=== PATIENT | male | born 1955 | race Caucasian/White ===

== ENCOUNTER 2017-03-31 14:22 | Emergency (ER) | payer MEDICARE, OTHER ==
--- NOTE | 2017-03-31 15:01 | ERNOTE ---
Lower Extremity HPI - Narrative Date of Service: 03/31/17 - General Lower Extremities Pain: foot: right Time Seen by Provider: 03/31/17 14:39 Source: patient Exam Limitations: no limitations - Immun/Allergies/Home Medications Immunizations: IMMUNIZATION HX Immunizations Up to Date Yes History of Influenza Vaccine No Hx Pneumococcal Vaccination No Allergies/Adverse Reactions: Allergies Allergy/AdvReac Type Severity Reaction Status Date / Time No Known Allergies Allergy Unverified 03/05/14 17:55 Home Medications: HOME MEDICATIONS Albuterol Sulfate [Albuterol Sulfate 2.5 MG/0.5ML] 1 vial IH Q2H PRN 03/05/14 [ Last Taken Unknown] Albuterol Sulfate [Proair Hfa] 1 - 2 puff IH Q4H PRN 03/05/14 [Last Taken Unknown] Aspirin 325 mg PO DAILY 03/05/14 [Last Taken Unknown] Atenolol [Tenormin] 25 mg PO DAILY 03/05/14 [Last Taken Unknown] Clopidogrel Bisulfate [Plavix] 75 mg PO DAILY 03/05/14 [Last Taken Unknown] Fenofibrate Nanocrystallized [Tricor] 145 mg PO DAILY 03/05/14 [Last Taken Unknown] Fexofenadine HCl 180 mg PO DAILY 03/05/14 [Last Taken Unknown] Fluticasone/Salmeterol [Advair 250-50 Diskus] 1 puff IH BID 03/05/14 [Last Taken Unknown] Gabapentin [Neurontin] 600 mg PO TID 03/05/14 [Last Taken Unknown] Hydrochlorothiazide [Hydrodiuril] 25 mg PO DAILY 03/05/14 [Last Taken Unknown] Insulin Aspart [Novolog] 1,000 units SC 03/05/14 [Last Taken Unknown] Insulin Detemir [Levemir] 50 unit SQ DAILY 03/05/14 [Last Taken Unknown] Lisinopril [Zestril] 20 mg PO DAILY 03/05/14 [Last Taken Unknown] Omeprazole [Prilosec] 20 mg PO DAILY 03/05/14 [Last Taken Unknown] Polyethylene Glycol 3350 [Miralax] 17 gm PO DAILY 03/05/14 [Last Taken Unknown] Potassium Chloride [Klor-Con M20] 20 meq PO DAILY 03/05/14 [Last Taken Unknown] Simvastatin [Zocor] 40 mg PO HS 03/05/14 [Last Taken Unknown] Tiotropium [place] [Spiriva] 18 mcg IH DAILY 03/05/14 [Last Taken Unknown] metFORMIN HCL [Glucophage] 500 mg PO BIDWM 03/05/14 [Last Taken Unknown] Albuterol Sulfate [Proair Hfa] 1 - 2 puff IH Q4H PRN 03/31/17 [Last Taken Unknown] Clotrimazole [Lotrimin Cream] 1 appl TP BID #30 gm 03/31/17 [Last Taken Unknown] Cyanocobalamin (Vitamin B-12) [Vitamin B12] 1,000 mcg PO 03/31/17 [Last Taken Unknown] Petrolatum,White [Aquaphor] 1 appl TP BID #50 gm 03/31/17 [Last Taken Unknown] Tamsulosin HCl [Flomax] 0.4 mg PO DAILY 03/31/17 [Last Taken Unknown] - History of Present Illness Narrative: Pt. comes in with c/o R leg redness and discoloration and scaling for two months. Pt. states that he went to his PCP two months ago and was started on abx without any relief. Pt. states that he also has discoloration of B palms of his hands and his other foot as well. Pt. denies any CP, NVD, fever, SOB, chills, fatigue or malaise. Occurred: other - 2 months Location of Incident: home Method of Injury: Reports: no apparent injury Modifying Factors - (Improves): Reports: other - denies Modifying Factors - (Worsens): Reports: other - denies Associated Symptoms: Denies: unable to bear weight, snapping, popping sensation , dizzy/light headedness, headache, weakness, sensory loss, chest pain, vomiting /diarrhea, bowel/bladder problems Review of Systems - Review of Systems Constitutional: Present: no symptoms reported. Absent: recent illness, fever, chills, weakness, fatigue, malaise EYE: Present: no symptoms reported ENT: Present: no symptoms reported Respiratory: Present: no symptoms reported. Absent: shortness of breath, cough , wheezing Cardiology: Present: no symptoms reported. Absent: chest pain, palpitations, edema Gastrointestinal/Abdominal: Present: no symptoms reported. Absent: nausea, vomiting, diarrhea Genitourinary: Present: no symptoms reported. Absent: frequency, decreased urinary output Musculoskeletal: Present: joint pain - R foot. Absent: back pain, neck pain Skin: Present: no symptoms reported Neurological: Absent: headache, dizziness/light-headedness, numbness, tingling - Patient's Past Medical History Patient History - Medical: Arthritis, Diabetes Type 2 Patient History - Cardiac/Respiratory: Asthma, Hypertension, Hyperlipidemia Patient History - Cancer: No Hx of Cancer Patient History - Surgical Procedures: Other, Hernia Repair Patient History - Other: None - Social History Living Situations: alone Abuse History: No History of abuse Psych History: No pertinent hx Smoking Status: Never smoker Have you smoked in the past 12 months: Yes Do you dip or chew tobacco: No Alcohol Use: occasionally Drug Use: none - Immunizations Immunizations Up to Date: Yes Hx Pneumococcal Vaccination: No History of Influenza Vaccine: No Physical Exam - Physical Exam General Appearance: Present: wd/wn, alert, no apparent distress Head Exam: Present: normal inspection, no evidence of injury Eye Exam: Normal inspection: bilateral Neck: Present: normal inspection, nontender, supple, full range of motion. Absent: lymphadenopathy (R), lymphadenopathy (L) Respiratory: Present: no respiratory distress, normal breath sounds, no accessory muscle use, chest nontender, lungs clear Cardiovascular/Chest: Present: regular rate, rhythm, no murmur, normal peripheral pulses Back Exam: Present: normal inspection Extremity Exam: Present: normal range of motion, pedal edema - trace B Neurological Exam: Present: alert, oriented, normal mood/affect, no motor/ sensory deficits Skin Exam: Present: other - B feet and palmar surface of hands with discolorations and callussed surface with excoriations of dorsal B feet and redness of B feet ED Progress - Date and Time Seen: Date and Time: 03/31/17 16:[address] Bedolla and as pt. does not meet SIRS criteria then Lactic acid elevation is likely inflammatory but feel that pt. needs treatment with topical antifungal anmd oral abx anyway when discharged. - Results and Orders Patient's Lab Results:: I have reviewed the patient's lab results. - Vital Signs Patient's Vital Signs:: I have reviewed the patient's vital signs. Vital Signs: Vital Signs 03/31/17 14:31 Temperature 36.2 C L Pulse Rate 100 Respiratory 14 Rate Blood Pressure 179/98 - Progress/Reassessment Chief Complaint: Lower Extremity Pain/ Injury Progress:: Improved Departure Clinical Impression: Tinea Cellulitis Qualifiers: Site of cellulitis: extremity Site of cellulitis of extremity: lower extremity Laterality: right Qualified Code(s): L03.115 - Cellulitis of right lower limb - Departure Disposition: Home self-care Condition: Good Instructions: Cellulitis, Adult, [id number], Athlete's Foot, [id number] Additional Instructions: Please soak feet and clean with soap and water then apply lotramin cream twice a day and change into clean socks. Then apply aquacel to hands and feet and legs two hours later. Referrals: Yarelis Marley MD [Primary Care Provider] - Prescriptions: Clotrimazole [Lotrimin Cream] 1 appl TP BID #30 gm Petrolatum,White [Aquaphor] 1 appl TP BID #50 gm
[2017-03-31 15:11] LABS: Hematocrit 50.8 % (42.0-52.0); Hemoglobin 17.5 gm/dL (13.5-18.0); Mean Cell Volume 90.2 fl (78-100); Mean Corpuscular Hemoglobin 31.1 pg (27-31); Mean Corpuscular Hgb Conc 34.4 g/dl (32-36); Mean Platelet Volume 8.9 fl (6.0-9.5); Neutrophil # 6.8 K/mm3 (1.3-6.0); Neutrophil % 74.6 % (42-75.0); Platelet Count 183 K/mm3 (150-450); Red Blood Count 5.63 M/mm3 (4.7-6.0); Red Cell Distribution Width 15.2 % (11.5-14.0)
[2017-03-31 15:25] LABS: Anion Gap 16.3 mmol/L (6.8-13.8); BUN/Creatinine Ratio 24.3 (9.0-21.6); Bilirubin, Total 1.3 mg/dL (0.0-1.1); CRP 2.2 mg/dL (0.0-0.9); Ca. Corrected For Albumin 9.4 mg/dL (8.4-10.2); Calcium * 9.7 mg/dL (7.9-10.9); Carbon Dioxide 26.8 mmol/L (24-32.6); Potassium 4.1 mmol/L (3.4-4.6); Total Protein 8.6 gm/dL (6.2-8.2)
[2017-03-31] MEDS ORDERED: CLOTRIMAZOLE 30 APPL TUBE TP ONE ×2 (15:27→15:30)
[2017-03-31] MEDS ORDERED: NORMAL SALINE 1,000 ML IV ONE (15:31)
[2017-03-31 16:43] VITALS: BP 153/90
== END 2017-03-31 16:56 | disposition home or self-care (01) ==
LOC: ER 14:22
DX: B35.3 Tinea pedis (principal); L03.115 Cellulitis of right lower limb; J45.909 Unspecified asthma, uncomplicated

== ENCOUNTER 2017-11-28 16:15 | Observation (INO) | payer MEDICARE, OTHER ==
[2017-11-28] MEDS ORDERED: METHYLPREDNISOLONE SOD SUCC/PF 125 MG/2 ML VIAL IV ONE (16:30)
--- NOTE | 2017-11-28 16:33 | ERNOTE ---
Dyspnea - Date Date of Service: 11/28/17 - General Presenting Symptoms: shortness of breath, difficulty of breathing, wheezing Time Seen by Provider: 11/28/17 16:19 Source: patient Exam Limitations: no limitations - Immun/Allergies/Home Medications Immunizations: IMMUNIZATION HX Immunizations Up to Date Yes History of Influenza Vaccine Yes Hx Pneumococcal Vaccination More Information Required Allergies/Adverse Reactions: Allergies No Known Allergies Allergy (Verified 11/28/17 16:26) Home Medications: HOME MEDICATIONS Aspirin 325 mg PO DAILY 03/05/14 [Last Taken Unknown] Atenolol [Tenormin] 25 mg PO DAILY 03/05/14 [Last Taken Unknown] Clopidogrel Bisulfate [Plavix] 75 mg PO DAILY 03/05/14 [Last Taken Unknown] Fenofibrate Nanocrystallized [Tricor] 145 mg PO DAILY 03/05/14 [Last Taken Unknown] Fluticasone/Salmeterol [Advair 250-50 Diskus] 1 puff IH BID 03/05/14 [Last Taken Unknown] Gabapentin [Neurontin] 600 mg PO TID 03/05/14 [Last Taken Unknown] Hydrochlorothiazide [Hydrodiuril] 25 mg PO DAILY 03/05/14 [Last Taken Unknown] Insulin Aspart [Novolog] See Protocol SC DAILY 03/05/14 [Last Taken Unknown] Insulin Detemir [Levemir] 50 unit SQ DAILY 03/05/14 [Last Taken Unknown] Lisinopril [Zestril] 20 mg PO DAILY 03/05/14 [Last Taken Unknown] Omeprazole [Prilosec] 20 mg PO DAILY 03/05/14 [Last Taken Unknown] Potassium Chloride [Klor-Con M20] 20 meq PO DAILY 03/05/14 [Last Taken Unknown] Simvastatin [Zocor] 40 mg PO HS 03/05/14 [Last Taken Unknown] Tiotropium [place] [Spiriva] 18 mcg IH DAILY 03/05/14 [Last Taken Unknown] metFORMIN HCL [Glucophage] 500 mg PO BID 03/05/14 [Last Taken Unknown] Albuterol Sulfate [Proair Hfa] 1 - 2 puff IH Q4H PRN 03/31/17 [Last Taken Unknown] Petrolatum,White [Aquaphor] 1 appl TP BID #50 gm 03/31/17 [Last Taken Unknown] Tamsulosin HCl [Flomax] 0.4 mg PO DAILY 03/31/17 [Last Taken Unknown] - History of Present Illness Narrative: The patient is a 62 year old male who presents for dyspnea which worsened this am from his chronic dyspnea. There are associated symptoms of productive cough with increased sputum purulence and volume. The patient reports pain to left lateral ribs. There are no alleviating factors. There are no aggravating factors. Previous treatments have included: albuterol neb in route via EMS. The past medical history includes: COPD, fem pop bypass. The social history is positive for current smoking. The patient has had no ill contacts. Patient states that he fell today and has been frequently falling. Patient states he often forgets to use his cane which is typically the cause for his fall. Patient states today he was walking and had forgotten to use his cane and fell to the floor from standing position. Patient denies LOC, striking his head or neck pain. 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 Denies: fever/chills Medical History (Last Reviewed 11/28/17 @ 16:36 by ATTILA Padilla) COPD (chronic obstructive pulmonary disease) Surgical History: Surgical History (Last Updated 11/28/17 @ 21:50 by ELSA Burkett) H/O colonoscopy (Acute) Hx of angiography (Acute) Social History: Preferred Language Sudanese Do you have any anabaptist or Yes: hindu cultural preference? Smoking Status Current every day smoker Have you smoked in the past 12 Yes months Do you dip or chew tobacco No Abuse History No History of abuse Psych History No pertinent hx Alcohol Use occasionally Drug Use none Physical Exam - Physical Exam General Appearance: Present: alert, moderate distress Head Exam: Present: normal inspection Eye Exam: Normal inspection: bilateral Ears, Nose, Throat: Present: normal ENT inspection, pharyngeal erythema Neck: Present: normal inspection Respiratory: Present: accessory muscle use, decreased breath sounds, wheezing - diffuse inspiratory and expiratory Cardiovascular/Chest: Present: tachycardia, chest tenderness - left lateral ribs. Absent: systolic murmur Peripheral Pulses: N=norm/S=strong/W=weak/B=bound/A=absent: Radial (R): Normal - tachycardia Gastrointestinal/Abdominal: Present: normal bowel sounds, nontender, soft, distended - abdominal obesity. Absent: guarding Extremity Exam: Present: extremity edema - 1+ pitting bilateral ankles, other - bilateral medial legs healed surgical scars from previous procedure Neurological Exam: Present: alert, oriented Skin Exam: Present: normal color, warm/dry Lymphatic Exam: Present: no adenopathy ED Progress - Date and Time Seen: Date and Time: 11/28/17 18:33 Patient rate slowed to 116, sinus tachycardia on monitor. - Results and Orders Patient's Lab Results:: I have reviewed the patient's lab results. - Vital Signs Patient's Vital Signs:: I have reviewed the patient's vital signs. Vital Signs: Vital Signs 11/28/17 16:21 Temperature 36.8 C Pulse Rate 135 H Respiratory Rate 27 H Blood Pressure 135/90 H O2 Sat by Pulse Oximetry 100 - EKG EKG: other - sinus tachycardia vs atrial flutter EKG read: Reviewed by me EKG Comments: Reviewed with . - X-Ray X-Ray #1 X-Ray: chest Interpretation: Reviewed by me X-ray Comments: X-RAY REPORT ~[id number] RAD/Chest PA & Lateral *~ Exam Date: 11/28/2017 17:34 Ordering Physician: Annemarie Salas History: Shortness of breath. Patient states cough. Trouble breathing. Fall with left rib pain. Technique: PA and lateral views. Comparison: 03/05/2014 Findings: Heart size and vascularity appear within normal limits. There is mild hyperinflation of the lung morgan compatible with underlying COPD. There are no focal infiltrates or effusions. There is no pulmonary contusion or pneumothorax. IMPRESSION: NO ACUTE CARDIOPULMONARY DISEASE IDENTIFIED. Electronically signed by Teo Freitas M.D.. X-Ray #2 X-Ray: ribs Interpretation: Reviewed by me X-ray Comments: X-RAY REPORT ~[id number] RAD/Ribs Unilateral LT *~ Exam Date: 11/28/2017 16:30 Ordering Physician: Annemarie Salas History: Shortness of breath. Patient states cough. Trouble breathing. Fall with left rib pain. TECHNIQUE: 4 rib detail views of the left ribs obtained. COMPARISON: 05/21/2014. Findings: No acute rib fractures identified. Chest x-ray showed no evidence for pulmonary contusion or pneumothorax. There is evidence for remote fractures. IMPRESSION: NO ACUTE RIB FRACTURES OR ASSOCIATED COMPLICATIONS IDENTIFIED. Electronically signed by Teo Freitsa M.D.. - CT/Ultrasound CT/Ultrasound Narrative: X-RAY REPORT ~[id number] CT/CTA Chest~ Exam Date: 11/28/2017 17:52 Ordering Physician: Annemarie Salas History: Elevated d-dimer. Dyspnea. Technique: Multislice helical acquisition of the chest from the upper lung morgan to the lower lung morgan performed with IV contrast enhancement. Coronal MIP reconstruction images also performed per PE protocol. Individualized dose optimization technique was used for the performed procedure including automated exposure control, adjustment of the MA and or KV according to patient size and/or use of iterative reconstruction technique. Findings: There are no intraluminal filling defects to suggest thrombus PE. There are atherosclerotic calcifications including coronary artery calcifications. There is fatty infiltration of the liver. There are no pericardial or pleural effusions. There is some minimal dependent atelectasis. There is scarring or atelectasis in the right middle lobe. IMPRESSION: NO PE. Electronically signed by Teo Freitas M.D.. - Progress/Reassessment Chief Complaint: Dyspnea Progress:: Improved Plan - Plan Plan: 191: Attempt to contact Devi, no answer. 1922: Awaiting return call from hospitalist for admission. 193: Discuss care and plan for observation admission with Devi. Patient being admitted for COPD exacerbation with persistent tachypnea and tachycardia. Departure Clinical Impression: COPD with exacerbation, Metabolic acidosis, Tachypnea, Tachycardia - Departure Disposition: Still a patient Condition: Stable
[2017-11-28] MEDS ORDERED: METHYLPREDNISOLONE SOD SUCC/PF 125 MG/2 ML VIAL ONE (16:34)
[2017-11-28 16:46] LABS: Hematocrit 43.2 % (42.0-52.0); Hemoglobin 14.3 gm/dL (13.5-18.0); Mean Cell Volume 90.4 fl (78-100); Mean Corpuscular Hemoglobin 29.9 pg (27-31); Mean Corpuscular Hgb Conc 33.1 g/dl (32-36); Mean Platelet Volume 8.1 fl (8-11.3); Neutrophil # 6.3 K/mm3 (1.3-6.0); Neutrophil % 82.4 % (42-75.0); Platelet Count 170 K/mm3 (150-450); Red Blood Count 4.78 M/mm3 (4.7-6.0); Red Cell Distribution Width 13.3 % (11.5-14.0); White Blood Count 7.7 K/mm3 (4.0-10.5)
[2017-11-28 17:06] LABS: ALT 21 U/L (19-67); AST 24 U/L (0-48); Albumin * 3.1 gm/dl (3.4-5.0); Alkaline Phosphatase * 95 U/L (50-170); Anion Gap 32.5 mmol/L (6.8-13.8); BNP * 1138 pg/mL (5-175); BUN/Creatinine Ratio 10.9 (9.0-21.6); Blood Urea Nitrogen 17 mg/dL (6-23); Ca. Corrected For Albumin 9.3 mg/dL (8.4-10.2); Calcium * 8.9 mg/dL (7.9-10.9); Chloride 93 mmol/L (97-106); Glucose * 167 mg/dL (70-110); Potassium 3.5 mmol/L (3.4-4.6); Sodium 133 mmol/L (132-142)
[2017-11-28 17:09] LABS: Troponin I Less than 0.017 ng/ml (0.00-0.10)
[2017-11-28] MEDS: NORMAL SALINE 1,000 ML IV PRN (18:36)
[2017-11-28] MEDS ORDERED: LEVALBUTEROL HCL 1.25 MG/3 ML AMPUL IH ONE ×2 (19:41→19:42)
[2017-11-28] MEDS ORDERED: ALBUTEROL SULFATE/IPRATROPIUM 3 ML NEBU IH PRN (19:43)
[2017-11-28] MEDS ORDERED: NICOTINE 21 MG PATC TD SCH (19:45)
--- NOTE | 2017-11-28 21:52 | HP ---
Chief Complaint - Chief Complaint Date of Service: 11/28/17 Time of Service: 21:30 Chief Complaint: " SOB". Source of HPI- Pt; reliable, ERP report History of Present Illness: Mr. Ovalle is a 62-yr-old WM pt of Dr. Yarelis Marley with a PMH of: Asthma, COPD, DM II, HTN, HLD & Osteoarthritis. Pt states that he has been SOB nearly all of his life due to Asthma and Smoking, but for the last few days, he has felt more dyspneic than usual. His cough has been more productive and brings up thick yellow phlegm. His friend called EMS for him today as he could not catch his breath and he became pale. He was given an Albuterol nebulizer treatment enroute to the hospital. He did not need any oxygen supplementation and on arrival to the ED, his SPO2 was reportedly 98% RA. However, he visibly remained SOB with exp. and ins. wheezing and he was given IV Solumedrol. His WBC was in NR but there was an evolving LT shift. D-dimer --> 0.87, but follow-up with CT chest did not show any evidence of pulmonary embolism. There were no acute findings on the CXR. Cr--> 1.56 whereas his baseline is usually in the 1.00s. The EKG showed tachycardia in the 130s with negative troponin. Pt will be admitted under observation for COPD Exacerbation and remote telemetry monitoring. Medical History (Last Reviewed 11/28/17 @ 21:50 by ELSA Burkett) Abnormal angiogram Diabetes mellitus, type II HLD (hyperlipidemia) HTN (hypertension) Osteoarthritis COPD (chronic obstructive pulmonary disease) Surgical History: Surgical History (Last Updated 11/28/17 @ 21:51 by ELSA Burkett) History of cataract surgery (Acute) H/O colonoscopy (Acute) Hx of angiography (Acute) Family History: Family History (Last Updated 11/28/17 @ 22:19 by ELSA Burkett) Father Stomach cancer Mother COPD (chronic obstructive pulmonary disease) Social History: Preferred Language Moroccan Do you have any sikh or Yes: islam cultural preference? Smoking Status Current every day smoker Have you smoked in the past 12 Yes months Do you dip or chew tobacco No Abuse History No History of abuse Psych History No pertinent hx Alcohol Use occasionally Drug Use none Review Of Systems (GEN) - Review of Systems Generalized/Overall Review: Present: Weakness. Absent: Chills, Fever, Malaise EENTM: Absent: Eye Pain, Blurred Vision, Tearing Respiratory: Present: Cough, Shortness of Breath. Absent: Orthopnea, Stridor Cardiac: Absent: Chest Pain, Edema, Palpitations, Syncope Abdominal: Absent: Nausea, Vomiting, Hematemesis, Abdominal Pain, Constipation Genitourinary: Absent: Burning, Itching, Urgency, Frequency, Hematuria Musculoskeletal: Absent: Joint Pain, Back Pain, Joint Swelling Neurological: Present: Depressed, Emotional Problems. Absent: Headache, Anxiety , Weakness Skin: Present: Dryness Endocrine: Present: Flushing Misc: All systems neg except as marked Immunizations: IMMUNIZATION HX Immunizations Up to Date Yes History of Influenza Vaccine Yes Hx Pneumococcal Vaccination More Information Required Allergies/Adverse Reactions: Allergies Allergy/AdvReac Type Severity Reaction Status Date / Time No Known Allergies Allergy Verified 11/28/17 16:26 Home Medications: HOME MEDICATIONS Aspirin 325 mg PO DAILY 03/05/14 [Last Taken Unknown] Atenolol [Tenormin] 25 mg PO DAILY 03/05/14 [Last Taken Unknown] Clopidogrel Bisulfate [Plavix] 75 mg PO DAILY 03/05/14 [Last Taken Unknown] Fenofibrate Nanocrystallized [Tricor] 145 mg PO DAILY 03/05/14 [Last Taken Unknown] Fluticasone/Salmeterol [Advair 250-50 Diskus] 1 puff IH BID 03/05/14 [Last Taken Unknown] Gabapentin [Neurontin] 600 mg PO TID 03/05/14 [Last Taken Unknown] Hydrochlorothiazide [Hydrodiuril] 25 mg PO DAILY 03/05/14 [Last Taken Unknown] Insulin Aspart [Novolog] See Protocol SC DAILY 03/05/14 [Last Taken Unknown] Insulin Detemir [Levemir] 50 unit SQ DAILY 03/05/14 [Last Taken Unknown] Lisinopril [Zestril] 20 mg PO DAILY 03/05/14 [Last Taken Unknown] Omeprazole [Prilosec] 20 mg PO DAILY 03/05/14 [Last Taken Unknown] Potassium Chloride [Klor-Con M20] 20 meq PO BID 03/05/14 [Last Taken Unknown] Simvastatin [Zocor] 40 mg PO HS 03/05/14 [Last Taken Unknown] Tiotropium [place] [Spiriva] 18 mcg IH DAILY 03/05/14 [Last Taken Unknown] metFORMIN HCL [Glucophage] 500 mg PO BID 03/05/14 [Last Taken Unknown] Albuterol Sulfate [Proair Hfa] 1 - 2 puff IH Q4H PRN 03/31/17 [Last Taken Unknown] Petrolatum,White [Aquaphor] 1 appl TP BID #50 gm 03/31/17 [Last Taken Unknown] Tamsulosin HCl [Flomax] 0.4 mg PO DAILY 03/31/17 [Last Taken Unknown] Exam - Exam Vital Signs: Vital Signs - Last Taken Temp 36.8 C 11/28/17 16:21 Pulse 113 H 11/28/17 20:15 Resp 26 H 11/28/17 20:15 BP 160/82 H 11/28/17 20:15 Pulse Ox 97 11/28/17 20:15 Constitutional: Present: Alert, Oriented x3, Cooperative, No distress ENT Exam: Present: normal ENT inspection Eye Exam: bilateral eye: normal inspection, PERRL Neck: Present: non-tender, full range of motion, supple Back Exam: Present: normal inspection, no CVA tenderness Breasts: Present: Exam deferred Respiratory: Present: decreased breath sounds, accessory muscle use, expiration (prolonged) Cardiovascular/Chest: Present: normal peripheral pulses, regular rate, rhythm, no chest tenderness, no edema Abdomen: Present: Normal bowel sounds, soft, nontender /Rectal: Present: Exam deferred Extremity: Present: normal range of motion, non-tender, normal inspection Skin Exam: Present: warm/dry, no cyanosis Lymphatic: Present: no adenopathy Neurologic: Present: no motor/sensory deficits, alert, oriented x 3 Appearance: Present: appropriate appearance, appropriate insight Eye contact: Present: cooperative, good eye contact, normal speech Thoughts: Present: normal thought pattern, no apparent hallucination Diagnostic Studies: Abnormal Lab Results 11/28/17 11/28/17 11/28/17 Range/Units 16:23 16:40 16:40 Immature Gran % (Auto) 1.40 H (0.001-0.429) % Immature Gran # (Auto) 0.11 H (0.000-0.0310) K/mm3 Neutrophils % 82.4 H (42-75.0) % Lymphocytes % 6.9 L (20-51) % Neutrophils # 6.3 H (1.3-6.0) K/mm3 Lymphocytes # 0.53 L (1.5-3.5) k/mm3 D-Dimer (0.19-0.49) ug/mL pCO2 16.2 L* (35.0-48.0) mmHg HCO3 7.0 L (21.0-28.0) mmol/L Total CO2 7.5 L (19.0-24.0) mmol/L Base Excess -17.6 L (-2.0-3.0) mmol/L ABG pH 7.25 L (7.35-7.45) Chloride 93 L (97-106) mmol/L Carbon Dioxide 11.0 L (24-32.6) mmol/L Anion Gap 32.5 H (6.8-13.8) mmol/L Creatinine 1.56 H D (0.4-1.4) mg/dL Est GFR (Non-Af Amer) 48 L D (60-130) mL/min Random Glucose 167 H (70-110) mg/dL B-Natriuretic Peptide 1138 H (5-175) pg/mL Albumin 3.1 L (3.4-5.0) gm/dl 11/28/17 Range/Units Unknown Immature Gran % (Auto) (0.001-0.429) % Immature Gran # (Auto) (0.000-0.0310) K/mm3 Neutrophils % (42-75.0) % Lymphocytes % (20-51) % Neutrophils # (1.3-6.0) K/mm3 Lymphocytes # (1.5-3.5) k/mm3 D-Dimer 0.87 H (0.19-0.49) ug/mL pCO2 (35.0-48.0) mmHg HCO3 (21.0-28.0) mmol/L Total CO2 (19.0-24.0) mmol/L Base Excess (-2.0-3.0) mmol/L ABG pH (7.35-7.45) Chloride (97-106) mmol/L Carbon Dioxide (24-32.6) mmol/L Anion Gap (6.8-13.8) mmol/L Creatinine (0.4-1.4) mg/dL Est GFR (Non-Af Amer) (60-130) mL/min Random Glucose (70-110) mg/dL B-Natriuretic Peptide (5-175) pg/mL Albumin (3.4-5.0) gm/dl Laboratory Results WBC 7.7 K/mm3 (4.0-10.5) 11/28/17 16:40 RBC 4.78 M/mm3 (4.7-6.0) 11/28/17 16:40 Hgb 14.3 gm/dL (13.5-18.0) 11/28/17 16:40 Hct 43.2 % (42.0-52.0) 11/28/17 16:40 MCV 90.4 fl (78-100) 11/28/17 16:40 MCH 29.9 pg (27-31) 11/28/17 16:40 MCHC 33.1 g/dl (32-36) 11/28/17 16:40 RDW 13.3 % (11.5-14.0) 11/28/17 16:40 Plt Count 170 K/mm3 (150-450) 11/28/17 16:40 MPV 8.1 fl (8-11.3) 11/28/17 16:40 Immature Gran % (Auto) 1.40 % (0.001-0.429) H 11/28/17 16:40 Immature Gran # (Auto) 0.11 K/mm3 (0.000-0.0310) H 11/28/17 16:40 Neutrophils % 82.4 % (42-75.0) H 11/28/17 16:40 Lymphocytes % 6.9 % (20-51) L 11/28/17 16:40 Monocytes % 9.0 % (0.0-9) 11/28/17 16:40 Eosinophils % 0.0 % (0.0-3.0) 11/28/17 16:40 Basophils % 0.3 % (0.0-1.0) 11/28/17 16:40 Nucleated RBC % 0.0 k/mm3 (0-1) 11/28/17 16:40 Neutrophils # 6.3 K/mm3 (1.3-6.0) H 11/28/17 16:40 Lymphocytes # 0.53 k/mm3 (1.5-3.5) L 11/28/17 16:40 Monocytes # 0.7 k/mm3 (0.0-1.0) 11/28/17 16:40 Eosinophils # 0.0 k/mm3 (0.0-0.7) 11/28/17 16:40 Absolute Basophils 0.0 k/mm3 (0.0-0.1) 11/28/17 16:40 D-Dimer 0.87 ug/mL (0.19-0.49) H 11/28/17 Unknown pCO2 16.2 mmHg (35.0-48.0) L* 11/28/17 16:23 pO2 97.6 mmHg (83.0-108.0) 11/28/17 16:23 HCO3 7.0 mmol/L (21.0-28.0) L 11/28/17 16:23 Total CO2 7.5 mmol/L (19.0-24.0) L 11/28/17 16:23 Base Excess -17.6 mmol/L (-2.0-3.0) L 11/28/17 16:23 ABG pH 7.25 (7.35-7.45) L 11/28/17 16:23 ABG O2 Sat (Measured) 96.6 % (94.0-98.0) 11/28/17 16:23 Sodium 133 mmol/L (132-142) 11/28/17 16:40 Plasma Sodium 134 mmol/L (130-142) 11/28/17 16:40 Potassium 3.5 mmol/L (3.4-4.6) 11/28/17 16:40 Chloride 93 mmol/L (97-106) L 11/28/17 16:40 Carbon Dioxide 11.0 mmol/L (24-32.6) L 11/28/17 16:40 Anion Gap 32.5 mmol/L (6.8-13.8) H 11/28/17 16:40 BUN 17 mg/dL (6-23) 11/28/17 16:40 Creatinine 1.56 mg/dL (0.4-1.4) H D 11/28/17 16:40 Est GFR (Non-Af Amer) 48 mL/min (60-130) L D 11/28/17 16:40 BUN/Creatinine Ratio 10.9 (9.0-21.6) 11/28/17 16:40 Random Glucose 167 mg/dL (70-110) H 11/28/17 16:40 Lactic Acid, Venous 0.9 mmol/L (0.4-2.0) 11/28/17 17:45 Calcium 8.9 mg/dL (7.9-10.9) 11/28/17 16:40 Calcium Adj for Albumin 9.3 mg/dL (8.4-10.2) 11/28/17 16:40 Total Bilirubin 1.0 mg/dL (0.0-1.1) 11/28/17 16:40 AST 24 U/L (0-48) 11/28/17 16:40 ALT 21 U/L (19-67) 11/28/17 16:40 Alkaline Phosphatase 95 U/L (50-170) 11/28/17 16:40 Troponin I Less than 0.017 ng/ml (0.00-0.10) 11/28/17 16:40 B-Natriuretic Peptide 1138 pg/mL (5-175) H 11/28/17 16:40 Total Protein 8.0 gm/dL (6.2-8.2) 11/28/17 16:40 Albumin 3.1 gm/dl (3.4-5.0) L 11/28/17 16:40 Assessment/Plan - Assessment/Plan (1) COPD with exacerbation Assessment: Due to the worsening dyspnea and increased sputum production, comorbidities involving DM II & being a current smoker, will cover him with IV antibiotics to prevent pneumonia from evolving. Will add scheduled duonebs, IV corticosteroids. He has not needed any oxygen supplementation. Anticipate discharge tomorrow if no acute events overnight. He will remain on telemetry monitoring due to A-fib which can be common in pts with COPD and he was found to be tachycardic at the ED. Problem: Acute (2) Acute kidney injury Assessment: Provide IVF hydration. BMP in am. Problem: Acute (3) HTN (hypertension) Problem: Chronic Qualifiers: Hypertension type: essential hypertension Qualified Code(s): I10 - Essential (primary) hypertension (4) DM (diabetes mellitus), type 2 Assessment: Consistent carb diet, accue checks achs, will add SSI due to IV steroids. Problem: Chronic
[2017-11-28] MEDS: LEVALBUTEROL HCL 0.63 MG/3 ML AMPUL IH SCH (22:03)
[2017-11-28] MEDS ORDERED: LEVOFLOXACIN IN DEXTROSE 5 % 500 MG/100 ML BAG IV SCH (22:15)
[2017-11-28] MEDS: INSULIN LISPRO 100 UNITS/ML VIAL SC SCH (23:28)
[2017-11-28] MEDS: GABAPENTIN 600 MG TABLET PO SCH (23:28)
[2017-11-29] MEDS ORDERED: SENNOSIDES 8.6 MG TABLET PO SCH (00:31)
[2017-11-29] MEDS: ONDANSETRON HCL/PF 2 MG/ML VIAL IV PRN ×2 (01:08→04:55)
[2017-11-29] MEDS: METHYLPREDNISOLONE SOD SUCC/PF 40 MG/ML VIAL IV SCH ×3 (01:09→15:33)
[2017-11-29] MEDS: LEVALBUTEROL HCL 0.63 MG/3 ML AMPUL IH SCH ×4 (04:37→15:00)
[2017-11-29] MEDS: NORMAL SALINE 1,000 ML IV PRN ×2 (04:38→13:41)
[2017-11-29 05:48] LABS: Anion Gap 24.1 mmol/L (6.8-13.8); BUN/Creatinine Ratio 12.3 (9.0-21.6); Calcium * 8.6 mg/dL (7.9-10.9); Carbon Dioxide 16.8 mmol/L (24-32.6); Estimated Creat Clear 42.8; Potassium 2.9 mmol/L (3.4-4.6)
[2017-11-29] MEDS ORDERED: PANTOPRAZOLE SODIUM 20 MG TABLET.DR PO SCH (07:00)
[2017-11-29] MEDS ORDERED: PANTOPRAZOLE SODIUM 40 MG TABLET.EC PO SCH (07:00)
[2017-11-29] MEDS: INSULIN LISPRO 100 UNITS/ML VIAL SC SCH ×2 (07:26→12:12)
[2017-11-29] MEDS: GABAPENTIN 600 MG TABLET PO SCH ×2 (08:58→15:36)
[2017-11-29] MEDS ORDERED: CLOPIDOGREL BISULFATE 75 MG TABLET PO SCH (09:00)
[2017-11-29] MEDS ORDERED: FENOFIBRATE,MICRONIZED 134 MG CAPSULE PO SCH (09:00)
[2017-11-29] MEDS ORDERED: LISINOPRIL 20 MG TABLET PO SCH (09:00)
[2017-11-29] MEDS: NYSTATIN 60 ML BTL PO SCH ×2 (09:00→15:35)
[2017-11-29] MEDS ORDERED: TIOTROPIUM BROMIDE 5 CAP INHALER IH SCH (09:00)
[2017-11-29] MEDS ORDERED: ASPIRIN 325 MG TABLET.DR PO SCH (09:00)
[2017-11-29] MEDS ORDERED: MINERAL OIL/PETROLATUM,WHITE 454 APPL JAR TP SCH (09:00)
[2017-11-29] MEDS ORDERED: POTASSIUM CHLORIDE 20 MEQ TABLET.SA PO SCH ×2 (09:00→13:00)
[2017-11-29] MEDS ORDERED: HYDROCHLOROTHIAZIDE 25 MG TABLET PO SCH (09:00)
[2017-11-29] MEDS ORDERED: INSULIN DETEMIR 100 UNITS/ML VIAL SC SCH (09:00)
[2017-11-29] MEDS ORDERED: ATENOLOL 25 MG TABLET PO SCH (09:00)
[2017-11-29] MEDS ORDERED: TAMSULOSIN HCL 0.4 MG CAP.SR.24H PO SCH ×2 (09:00→19:00)
--- NOTE | 2017-11-29 09:22 | PN ---
Georgette Note - Interim Date: 11/29/17 Time: 09:19 Narrative: 11/29/17 09:19 Patient admitted for ACOPDE. He has been having throat pain and painful swallowing with N/V. Will give him Nystatin swish and swallow. Will change his diet to pureed for now. Continue with his breathing treatments and IV ABX/ Solumedrol. Will need a spacer for his inhalers.
--- NOTE | 2017-11-29 16:07 | DS ---
Description of Stay: Kvng Ovalle, is a 62-yr-old WM, with a PMH of: Asthma, COPD, DM II, HTN, HLD & Osteoarthritis who was admitted on for shortness of breath. . He has been SOB nearly all of his life due to Asthma and Smoking, but for the last few days, he has felt more dyspneic than usual. His cough has been more productive and brings up thick yellow phlegm. His friend called EMS for him today as he could not catch his breath and he became pale. He was given an Albuterol nebulizer treatment enroute to the hospital. He did not need any oxygen supplementation and on arrival to the ED, his SPO2 was reportedly 98% RA. However, he visibly remained SOB with exp. and ins. wheezing and he was given IV Solumedrol. His WBC was in NR but there was an evolving LT shift. D- dimer --> 0.87, but follow-up with CT chest did not show any evidence of pulmonary embolism. There were no acute findings on the CXR. Cr--> 1.56 whereas his baseline is usually in the 1.00s. The EKG showed tachycardia in the 130s with negative troponin. he was admitted for COPD Exacerbation and was cntinued on breathing treatments and IV Solumedrol and IV antibiotics. He says that he had ran out of his inhalers and nebulizers about 1 week ago. He had N/V and complained of sore throat and pain on swallowing. he was started on nystatin swish and swallow and has improved as he s able to eat now. he wants to go home adamantly. . Procedures Performed: none Results and Findings: Lab Pending Results 11/28/17 16:23: pCO2 16.2 L*, pO2 97.6, HCO3 7.0 L, Total CO2 7.5 L, Base Excess -17.6 L, ABG pH 7.25 L, ABG O2 Sat (Measured) 96.6 11/28/17 16:40: WBC 7.7, RBC 4.78, Hgb 14.3, Hct 43.2, MCV 90.4, MCH 29.9, MCHC 33.1, RDW 13.3, Plt Count 170, MPV 8.1, Immature Gran % (Auto) 1.40 H, Immature Gran # (Auto) 0.11 H, Neutrophils % 82.4 H, Lymphocytes % 6.9 L, Monocytes % 9.0 , Eosinophils % 0.0, Basophils % 0.3, Nucleated RBC % 0.0, Neutrophils # 6.3 H, Lymphocytes # 0.53 L, Monocytes # 0.7, Eosinophils # 0.0, Absolute Basophils 0.0 11/28/17 16:40: Sodium 133, Plasma Sodium 134, Potassium 3.5, Chloride 93 L, Carbon Dioxide 11.0 L, Anion Gap 32.5 H, BUN 17, Creatinine 1.56 H D, Est GFR ( Non-Af Amer) 48 L D, BUN/Creatinine Ratio 10.9, Random Glucose 167 H, Calcium 8.9, Calcium Adj for Albumin 9.3, Total Bilirubin 1.0, AST 24, ALT 21, Alkaline Phosphatase 95, Troponin I Less than 0.017, B-Natriuretic Peptide 1138 H, Total Protein 8.0, Albumin 3.1 L 11/28/17 17:45: Lactic Acid, Venous 0.9 11/28/17 : D-Dimer 0.87 H 11/29/17 05:38: Sodium 136, Plasma Sodium 139, Potassium 2.9 L, Chloride 98, Carbon Dioxide 16.8 L, Anion Gap 24.1 H, BUN 18, Creatinine 1.46 H, Est GFR (Non -Af Amer) 52 L, BUN/Creatinine Ratio 12.3, Random Glucose 306 H D, Calcium 8.6 Discharge Location: Home Disposition: Home self-care Condition: Stable Discharge Activity: Activity as tolerated Discharge Diet: Consistent carbs Referrals: Yarelis Marley MD [Primary Care Provider] - Additional Patient Instructions (free text): -Please make TCM appointment unless fpc discharge. Thank you! Linda @ [phone]. Follow up with PCP in 1 week. Prescriptions (Any new or edited meds): Albuterol Sulfate/Ipratropium [Duoneb 2.5-0.5MG/3ML Soln] 3 ml IH BID PRN #7 nebu PRN Reason: Shortness Of Breath Levofloxacin [Levaquin] 500 mg PO DAILY #10 tab Nystatin [Mycostatin 100 Mu/Ml Suspension] 5 ml PO QID 7 Days #1 btl Potassium Chloride [Klor-Con M20] 20 meq PO BID #60 tab.er.prt predniSONE [Prednisone] 20 mg PO DAILY 5 Days #10 tab Complete Home Medications List: Complete Home Medication List: Aspirin 325 mg PO DAILY 03/05/14 Atenolol [Tenormin] 25 mg PO DAILY 03/05/14 Clopidogrel Bisulfate [Plavix] 75 mg PO DAILY 03/05/14 Fenofibrate Nanocrystallized [Tricor] 145 mg PO DAILY 03/05/14 Fluticasone/Salmeterol [Advair 250-50 Diskus] 1 puff IH BID 03/05/14 Gabapentin [Neurontin] 600 mg PO TID 03/05/14 Hydrochlorothiazide [Hydrodiuril] 25 mg PO DAILY 03/05/14 Insulin Aspart [Novolog] See Protocol SC DAILY 03/05/14 Insulin Detemir [Levemir] 50 unit SQ DAILY 03/05/14 Lisinopril [Zestril] 20 mg PO DAILY 03/05/14 Omeprazole [Prilosec] 20 mg PO DAILY 03/05/14 Simvastatin [Zocor] 40 mg PO HS 03/05/14 Tiotropium [place] [Spiriva] 18 mcg IH DAILY 03/05/14 Albuterol Sulfate [Proair Hfa] 1 - 2 puff IH Q4H PRN 03/31/17 Petrolatum,White [Aquaphor] 1 appl TP BID #50 gm 03/31/17 Tamsulosin HCl [Flomax] 0.4 mg PO DAILY 03/31/17 Albuterol Sulfate/Ipratropium [Duoneb 2.5-0.5MG/3ML Soln] 3 ml IH BID PRN #7 nebu 11/29/17 Levofloxacin [Levaquin] 500 mg PO DAILY #10 tab 11/29/17 Nystatin [Mycostatin 100 Mu/Ml Suspension] 5 ml PO QID 7 Days #1 btl 11/29/17 Potassium Chloride [Klor-Con M20] 20 meq PO BID #60 tab.er.prt 11/29/17 predniSONE [Prednisone] 20 mg PO DAILY 5 Days #10 tab 11/29/17
[2017-11-29 17:16] VITALS: BP 145/60
[2017-11-29] MEDS ORDERED: SIMVASTATIN 40 MG TABLET PO SCH (21:00)
== END 2017-11-29 17:10 | disposition left against medical advice (07) ==
LOC: MS 16:15 → ER 16:15 → MS 20:15
PROVIDERS: ADMIT Nurse Practitioner; ATTEND Internal Medicine
CPT/HCPCS: 36415; 36600; 71020; 71046; 71100; 71275; 74019; 74020; 80048; 80053; 82803; 83519; 83605; 83880; 84484; 85025; 85379; 87040; 87077; 87186; 93005; 94640; 94664; 94760; 96361; 96365; 96372; 96375; 96376; 99284; G0378; J2405

== ENCOUNTER 2017-12-02 14:09 | Inpatient (IN) ==
[2017-12-02 15:25] LABS: Hematocrit 39.9 % (42.0-52.0); Hemoglobin 13.9 gm/dL (13.5-18.0); Mean Cell Volume 84.9 fl (78-100); Mean Corpuscular Hemoglobin 29.6 pg (27-31); Mean Corpuscular Hgb Conc 34.8 g/dl (32-36); Neutrophil # 8.3 K/mm3 (1.3-6.0); Neutrophil % 86.6 % (42-75.0); Platelet Count 149 K/mm3 (150-450); White Blood Count 9.6 K/mm3 (4.0-10.5)
[2017-12-02 15:39] LABS: Albumin * 2.8 gm/dl (3.4-5.0); Anion Gap 8.6 mmol/L (6.8-13.8); BUN/Creatinine Ratio 14.7 (9.0-21.6); Bilirubin, Total 0.6 mg/dL (0.0-1.1); Ca. Corrected For Albumin 9.6 mg/dL (8.4-10.2); Carbon Dioxide 35.1 mmol/L (24-32.6); Potassium 2.7 mmol/L (3.4-4.6); Total Protein 7.3 gm/dL (6.2-8.2)
[2017-12-02 15:48] LABS: Urine Bilirubin 1 mg/dl (NEGATIVE); Urine Blood Negative /ul (NEGATIVE); Urine Ketone 5 mg/dL (NEGATIVE); Urine Nitrite Negative (NEGATIVE); Urine Protein 30 mg/dL (NEGATIVE); Urine pH 6.5 pH (5.0-7.0)
[2017-12-02 16:05] LABS: Urine Appearance Clear (CLEAR); Urine Color Yellow
[2017-12-02 16:06] LABS: Urine Bacteria TRACE; Urine RBC TRACE /hpf (0-5); Urine WBC 0-5 /hpf (0-5)
--- NOTE | 2017-12-02 16:32 | ERNOTE ---
Medical Problem HPI - Narrative Date of Service: 12/02/17 - General Chief Complaint: General Assessment Time Seen by Provider: 12/02/17 14:41 Source: patient, RN notes reviewed, old records Exam Limitations: no limitations - Immun/Allergies/Home Medications Immunizations: IMMUNIZATION HX Immunizations Up to Date Yes History of Influenza Vaccine Yes Hx Pneumococcal Vaccination More Information Required Allergies/Adverse Reactions: Allergies No Known Allergies Allergy (Verified 12/02/17 14:23) Home Medications: HOME MEDICATIONS Aspirin 325 mg PO DAILY 03/05/14 [Last Taken Unknown] Atenolol [Tenormin] 25 mg PO DAILY 03/05/14 [Last Taken Unknown] Clopidogrel Bisulfate [Plavix] 75 mg PO DAILY 03/05/14 [Last Taken Unknown] Fenofibrate Nanocrystallized [Tricor] 145 mg PO DAILY 03/05/14 [Last Taken Unknown] Fluticasone/Salmeterol [Advair 250-50 Diskus] 1 puff IH BID 03/05/14 [Last Taken Unknown] Gabapentin [Neurontin] 600 mg PO TID 03/05/14 [Last Taken Unknown] Hydrochlorothiazide [Hydrodiuril] 25 mg PO DAILY 03/05/14 [Last Taken Unknown] Insulin Aspart [Novolog] See Protocol SC DAILY 03/05/14 [Last Taken Unknown] Insulin Detemir [Levemir] 50 unit SQ DAILY 03/05/14 [Last Taken Unknown] Lisinopril [Zestril] 20 mg PO DAILY 03/05/14 [Last Taken Unknown] Omeprazole [Prilosec] 20 mg PO DAILY 03/05/14 [Last Taken Unknown] Simvastatin [Zocor] 40 mg PO HS 03/05/14 [Last Taken Unknown] Tiotropium [place] [Spiriva] 18 mcg IH DAILY 03/05/14 [Last Taken Unknown] Albuterol Sulfate [Proair Hfa] 1 - 2 puff IH Q4H PRN 03/31/17 [Last Taken Unknown] Petrolatum,White [Aquaphor] 1 appl TP BID #50 gm 03/31/17 [Last Taken Unknown] Tamsulosin HCl [Flomax] 0.4 mg PO DAILY 03/31/17 [Last Taken Unknown] Albuterol Sulfate/Ipratropium [Duoneb 2.5-0.5MG/3ML Soln] 3 ml IH BID PRN #7 nebu 11/29/17 [Last Taken Unknown] Levofloxacin [Levaquin] 500 mg PO DAILY #10 tab 11/29/17 [Last Taken Unknown] Nystatin [Mycostatin 100 Mu/Ml Suspension] 5 ml PO QID 7 Days #1 btl 11/29/17 [ Last Taken Unknown] Potassium Chloride [Klor-Con M20] 20 meq PO BID #60 tab.er.prt 11/29/17 [Last Taken Unknown] predniSONE [Prednisone] 20 mg PO DAILY 5 Days #10 tab 11/29/17 [Last Taken Unknown] - History of Present History Narrative: Kvng is a 62 year old male who presents to the ED stating that he is still sick. He was admitted on 11/28 for a COPD exacerbation. His preliminary blood cultures were positive, but he signed out AMA on 11/30. He was given Levaquin and Solu-Medrol during his hospitalization. His chest xray did not show any acute process on admission. He continues to smoke a pack a day despite having COPD. He is also a heavy drinker. His final blood cultures showed enterococcus faecalis today. He reports that he still has a productive cough and shortness of breath. Timing: getting worse Review of Systems - Review of Systems Constitutional: Present: recent illness, fatigue, malaise EYE: Present: no symptoms reported ENT: Absent: nose congestion, sore throat Respiratory: Present: shortness of breath, cough, wheezing Cardiology: Absent: chest pain, syncope Gastrointestinal/Abdominal: Present: vomiting. Absent: diarrhea, abdominal pain Genitourinary: Absent: dysuria, hematuria Musculoskeletal: Present: muscle pain, joint pain Skin: Absent: rash, lesions Neurological: Absent: headache, dizziness/light-headedness Endocrine: Present: no symptoms reported Hematologic/Lymphatic: Absent: easy bruising, easy bleeding Psych: Present: depressed Medical History (Last Reviewed 12/02/17 @ 14:23 by Em Balderas RN) Abnormal angiogram COPD (chronic obstructive pulmonary disease) Diabetes mellitus, type II HLD (hyperlipidemia) HTN (hypertension) Osteoarthritis Surgical History: Surgical History (Last Reviewed 12/02/17 @ 14:23 by Em Balderas RN) History of cataract surgery (Acute) H/O colonoscopy (Acute) Hx of angiography (Acute) Family History: Family History (Last Reviewed 11/28/17 @ 22:34 by Abby Mendieta RN) Father Stomach cancer Mother COPD (chronic obstructive pulmonary disease) Social History: Preferred Language Turkish Do you have any catholic or No cultural preference? Smoking Status Current every day smoker Abuse History No History of abuse Psych History No pertinent hx Alcohol Use heavy Drug Use none Physical Exam - Physical Exam General Appearance: Present: wd/wn, alert, no apparent distress, other - Foul body odor, poor hygiene Head Exam: Present: normal inspection Eye Exam: Normal inspection: bilateral Respiratory: Present: no respiratory distress, no accessory muscle use, decreased breath sounds, expiration (prolonged) Cardiovascular/Chest: Present: no murmur, tachycardia Extremity Exam: Present: normal inspection, normal range of motion, no edema Neurological Exam: Present: alert, oriented, no motor/sensory deficits, other - Dysphoric. Absent: normal mood/affect Skin Exam: Present: normal color, warm/dry ED Progress - Results and Orders Patient's Lab Results:: I have reviewed the patient's lab results. - Vital Signs Patient's Vital Signs:: I have reviewed the patient's vital signs. Vital Signs: Vital Signs 12/02/17 14:18 12/02/17 15:41 12/02/17 16:22 Temperature 36.4 C 36.7 C 36.6 C Pulse Rate 114 H 113 H 117 H Respiratory Rate 22 H 16 16 Blood Pressure 149/84 126/78 128/84 O2 Sat by Pulse Oximetry 97 96 97 - X-Ray X-Ray #1 X-Ray: chest Interpretation: Interp. by me X-ray Comments: No acute cardiopulmonary process - Progress/Reassessment Chief Complaint: General Assessment Progress:: Unchanged Plan - Plan Plan: Patient is afebrile. His SpO2 is in the upper 90's in RA. He shows no signs of respiratory distress despite his complaints of cough and dyspnea. He is tachycardic in the 110's. His chest xray again does not show any acute findings , but his urine shows luekocyte esterase and a a trace of bacteria. A urine culture is pending. The urine may be the source of his sepsis. His lactic acid is normal despite the positive blood cultures. Dr. Garcia was contacted and the patient will be admitted to med/surg. Departure Clinical Impression: Sepsis due to Enterococcus - Departure Disposition: Still a patient Condition: Stable Referrals: Yarelis Marley MD [Primary Care Provider] -
[2017-12-02] MEDS ORDERED: ALBUTEROL SULFATE/IPRATROPIUM 3 ML NEBU IH PRN (17:07)
[2017-12-02] MEDS ORDERED: HYDROPHILIC OINTMENT 454 APPL JAR TP PRN (17:24)
[2017-12-02] MEDS ORDERED: POTASSIUM CHLORIDE 20 MEQ TABLET.SA PO SCH (17:30)
[2017-12-02] MEDS: AMPICILLIN SODIUM 2,000 MG in NORMAL SALINE 100 ML IV SCH (19:06)
[2017-12-02] MEDS: SIMVASTATIN 40 MG TABLET PO SCH (20:42)
[2017-12-02] MEDS: NYSTATIN 60 ML BTL PO SCH (20:43)
[2017-12-02] MEDS: FLUTICASONE PROPION/SALMETEROL 14 PUFF DISK.W.DEV IH SCH (21:10)
--- NOTE | 2017-12-02 22:16 | HP ---
Chief Complaint - Chief Complaint Date of Service: 12/02/17 Time of Service: 17:00 Chief Complaint: Fever History of Present Illness: Kvng is a 62 yo male that was recently in the hospital with fever, concerns for sepsis, and possible UTI. He was treated with antibiotics and felt better and left AMA. Blood cultures today returned positive for enterococcus x 2. However, on his own volition he came to the ER this afternoon due to return of fevers, chills, and weakness. Medical History (Last Reviewed 12/02/17 @ 14:23 by Em Balderas RN) Abnormal angiogram COPD (chronic obstructive pulmonary disease) Diabetes mellitus, type II HLD (hyperlipidemia) HTN (hypertension) Osteoarthritis Surgical History: Surgical History (Last Reviewed 12/02/17 @ 14:23 by Em Balderas RN) History of cataract surgery (Acute) H/O colonoscopy (Acute) Hx of angiography (Acute) Family History: Family History (Last Reviewed 11/28/17 @ 22:34 by Abby Mendieta RN) Father Stomach cancer Mother COPD (chronic obstructive pulmonary disease) Social History: Patient Lives/Resources Home Utilized Occupation disabled Preferred Language Slovak Do you have any muslim or Yes: Islam cultural preference? Smoking Status Current every day smoker Have you smoked in the past 12 Yes months Do you dip or chew tobacco No Abuse History No History of abuse Psych History No pertinent hx Alcohol Use heavy Drug Use none Review Of Systems (GEN) - Review of Systems Generalized/Overall Review: Present: Weakness, Chills, Fever EENTM: Present: No Symptoms Reported Respiratory: Present: No Symptoms Reported Cardiac: Present: No Symptoms Reported Abdominal: Present: No Symptoms Reported Genitourinary: Present: Frequency. Absent: Burning Musculoskeletal: Present: No Symptoms Reported Neurological: Present: No Symptoms Reported Skin: Present: No Symptoms Reported Immunizations: IMMUNIZATION HX Immunizations Up to Date Yes History of Influenza Vaccine Yes Hx Pneumococcal Vaccination More Information Required Allergies/Adverse Reactions: Allergies Allergy/AdvReac Type Severity Reaction Status Date / Time No Known Allergies Allergy Verified 12/02/17 14:23 Home Medications: HOME MEDICATIONS Aspirin 325 mg PO DAILY 03/05/14 [Last Taken Unknown] Atenolol [Tenormin] 25 mg PO DAILY 03/05/14 [Last Taken Unknown] Clopidogrel Bisulfate [Plavix] 75 mg PO DAILY 03/05/14 [Last Taken Unknown] Fluticasone/Salmeterol [Advair 250-50 Diskus] 1 puff IH BID 03/05/14 [Last Taken Unknown] Gabapentin [Neurontin] 600 mg PO TID 03/05/14 [Last Taken Unknown] Hydrochlorothiazide [Hydrodiuril] 25 mg PO DAILY 03/05/14 [Last Taken Unknown] Insulin Aspart [Novolog] See Protocol SC DAILY 03/05/14 [Last Taken Unknown] Insulin Detemir [Levemir] 50 unit SQ DAILY 03/05/14 [Last Taken Unknown] Lisinopril [Zestril] 20 mg PO DAILY 03/05/14 [Last Taken Unknown] Omeprazole [Prilosec] 20 mg PO DAILY 03/05/14 [Last Taken Unknown] Simvastatin [Zocor] 40 mg PO HS 03/05/14 [Last Taken Unknown] Tiotropium Moro [Spiriva] 18 mcg IH DAILY 03/05/14 [Last Taken Unknown] Petrolatum,White [Aquaphor] 1 appl TP BID #50 gm 03/31/17 [Last Taken Unknown] Tamsulosin HCl [Flomax] 0.4 mg PO DAILY 03/31/17 [Last Taken Unknown] Albuterol Sulfate/Ipratropium [Duoneb 2.5-0.5MG/3ML Soln] 3 ml IH BID PRN #7 nebu 11/29/17 [Last Taken Unknown] Potassium Chloride [Klor-Con M20] 20 meq PO BID #60 tab.er.prt 11/29/17 [Last Taken Unknown] Ampicillin Trihydrate 1,000 mg PO QID 5 Days #40 cap 12/07/17 [Last Taken Unknown] Atorvastatin Calcium 20 mg PO DAILY #30 tab 12/07/17 [Last Taken Unknown] Polyethylene Glycol 3350 [Miralax] 17 gm PO DAILY #30 btl 12/07/17 [Last Taken Unknown] Sennosides [Senokot] 17.2 mg PO BID #60 tab 12/07/17 [Last Taken Unknown] guaiFENesin [Mucinex] 600 mg PO BID #30 tablet.sa 12/07/17 [Last Taken Unknown] albuterol sulfate HFA 90 mcg/actuation aerosol inhaler 1 - 2 puff IH Q4H PRN #8 g 12/14/17 [Last Taken Unknown] fluticasone 250 mcg-salmeterol 50 mcg/dose blistr powdr for inhalation 1 inh IH BID #60 ea 12/14/17 [Last Taken Unknown] umeclidinium 62.5 mcg/actuation blister powder for inhalation 1 inh IH DAILY # 30 ea 12/14/17 [Last Taken Unknown] Exam - Exam Vital Signs: Vital Signs - Last Taken Temp 36.4 C 12/02/17 16:59 Pulse 115 H 12/02/17 19:25 Resp 20 12/02/17 19:25 BP 144/88 12/02/17 16:59 Pulse Ox 26 L 12/02/17 19:15 Constitutional: Present: Alert, Oriented x3, Cooperative ENT Exam: Present: hearing grossly normal Eye Exam: bilateral eye: normal inspection Respiratory: Present: lungs clear, normal breath sounds Cardiovascular/Chest: Present: regular rate, rhythm, no murmur Abdomen: Present: Normal bowel sounds, soft, nontender, nondistended Skin Exam: Present: normal color, warm/dry, no cyanosis Neurologic: Present: alert, normal mood/affect, oriented x 3 Appearance: Present: appropriate appearance, appropriate insight Eye contact: Present: cooperative, good eye contact, normal speech Diagnostic Studies: Abnormal Lab Results 12/02/17 12/02/17 12/02/17 Range/Units 15:17 15:17 15:41 Hct 39.9 L (42.0-52.0) % Plt Count 149 L (150-450) K/mm3 Immature Gran % (Auto) 2.00 H (0.001-0.429) % Immature Gran # (Auto) 0.19 H (0.000-0.0310) K/mm3 Neutrophils % 86.6 H (42-75.0) % Lymphocytes % 7.3 L (20-51) % Neutrophils # 8.3 H (1.3-6.0) K/mm3 Lymphocytes # 0.70 L (1.5-3.5) k/mm3 Potassium 2.7 L (3.4-4.6) mmol/L Chloride 92 L (97-106) mmol/L Carbon Dioxide 35.1 H (24-32.6) mmol/L Random Glucose 249 H (70-110) mg/dL ALT 17 L (19-67) U/L Albumin 2.8 L (3.4-5.0) gm/dl Urine Protein 30 H (NEGATIVE) mg/dL Urine Glucose (UA) 250 H (NEGATIVE) mg/dL Urine Bilirubin 1 H (NEGATIVE) mg/dl Urine Urobilinogen 2.0 H (NORMAL) EU/dl Ur Leukocyte Esterase 25 H (NEGATIVE) /ul Laboratory Results WBC 9.6 K/mm3 (4.0-10.5) 12/02/17 15:17 RBC 4.70 M/mm3 (4.7-6.0) 12/02/17 15:17 Hgb 13.9 gm/dL (13.5-18.0) 12/02/17 15:17 Hct 39.9 % (42.0-52.0) L 12/02/17 15:17 MCV 84.9 fl (78-100) 12/02/17 15:17 MCH 29.6 pg (27-31) 12/02/17 15:17 MCHC 34.8 g/dl (32-36) 12/02/17 15:17 RDW 13.0 % (11.5-14.0) 12/02/17 15:17 Plt Count 149 K/mm3 (150-450) L 12/02/17 15:17 MPV 9.0 fl (8-11.3) 12/02/17 15:17 Immature Gran % (Auto) 2.00 % (0.001-0.429) H 12/02/17 15:17 Immature Gran # (Auto) 0.19 K/mm3 (0.000-0.0310) H 12/02/17 15:17 Neutrophils % 86.6 % (42-75.0) H 12/02/17 15:17 Lymphocytes % 7.3 % (20-51) L 12/02/17 15:17 Monocytes % 3.7 % (0.0-9) 12/02/17 15:17 Eosinophils % 0.1 % (0.0-3.0) 12/02/17 15:17 Basophils % 0.3 % (0.0-1.0) 12/02/17 15:17 Nucleated RBC % 0.0 k/mm3 (0-1) 12/02/17 15:17 Neutrophils # 8.3 K/mm3 (1.3-6.0) H 12/02/17 15:17 Lymphocytes # 0.70 k/mm3 (1.5-3.5) L 12/02/17 15:17 Monocytes # 0.4 k/mm3 (0.0-1.0) 12/02/17 15:17 Eosinophils # 0.0 k/mm3 (0.0-0.7) 12/02/17 15:17 Absolute Basophils 0.0 k/mm3 (0.0-0.1) 12/02/17 15:17 Sodium 133 mmol/L (132-142) 12/02/17 15:17 Plasma Sodium 135 mmol/L (130-142) 12/02/17 15:17 Potassium 2.7 mmol/L (3.4-4.6) L 12/02/17 15:17 Chloride 92 mmol/L (97-106) L 12/02/17 15:17 Carbon Dioxide 35.1 mmol/L (24-32.6) H 12/02/17 15:17 Anion Gap 8.6 mmol/L (6.8-13.8) 12/02/17 15:17 BUN 11 mg/dL (6-23) 12/02/17 15:17 Creatinine 0.75 mg/dL (0.4-1.4) 12/02/17 15:17 Est GFR (Non-Af Amer) 113 mL/min (60-130) D 12/02/17 15:17 BUN/Creatinine Ratio 14.7 (9.0-21.6) 12/02/17 15:17 Random Glucose 249 mg/dL (70-110) H 12/02/17 15:17 Lactic Acid, Venous 1.5 mmol/L (0.4-2.0) 12/02/17 15:17 Calcium 9.0 mg/dL (7.9-10.9) 12/02/17 15:17 Calcium Adj for Albumin 9.6 mg/dL (8.4-10.2) 12/02/17 15:17 Total Bilirubin 0.6 mg/dL (0.0-1.1) 12/02/17 15:17 AST 17 U/L (0-48) 12/02/17 15:17 ALT 17 U/L (19-67) L 12/02/17 15:17 Alkaline Phosphatase 74 U/L (50-170) 12/02/17 15:17 Total Protein 7.3 gm/dL (6.2-8.2) 12/02/17 15:17 Albumin 2.8 gm/dl (3.4-5.0) L 12/02/17 15:17 Urine Color Yellow 12/02/17 15:41 Urine Appearance Clear (CLEAR) 12/02/17 15:41 Urine pH 6.5 pH (5.0-7.0) 12/02/17 15:41 Ur Specific Harriet 1.010 SP.GR. (1.005-1.030) 12/02/17 15:41 Urine Protein 30 mg/dL (NEGATIVE) H 12/02/17 15:41 Urine Glucose (UA) 250 mg/dL (NEGATIVE) H 12/02/17 15:41 Urine Ketones 5 mg/dL (NEGATIVE) 12/02/17 15:41 Urine Blood Negative /ul (NEGATIVE) 12/02/17 15:41 Urine Nitrate Negative (NEGATIVE) 12/02/17 15:41 Urine Bilirubin 1 mg/dl (NEGATIVE) H 12/02/17 15:41 Urine Ictotest Negative (NEGATIVE) 12/02/17 15:41 Prot Sulfosalicylic Acd 1+ mg/dL (0) 12/02/17 15:41 Urine Urobilinogen 2.0 EU/dl (NORMAL) H 12/02/17 15:41 Ur Leukocyte Esterase 25 /ul (NEGATIVE) H 12/02/17 15:41 Urine RBC Trace /hpf (0-5) 12/02/17 15:41 Urine WBC 0-5 /hpf (0-5) 12/02/17 15:41 Ur Epithelial Cells 0-5 /hpf (0-5) 12/02/17 15:41 Urine Bacteria Trace (NONE) 12/02/17 15:41 Urine Culture Comments Culture to follow 12/02/17 15:41 Assessment/Plan - Assessment/Plan (1) Bacteremia due to Enterococcus Assessment: Kvng is a 62 yo with: 1) Bacteremia due to enterococcus. Blood cultures are positive x 2. Will treat with IV ampicillin. I suspect source is UTI, however Endocarditis should also be considered. May consider getting echocardiogram. He denies IV drug use currently, although he does admit to this many years ago. He will need IV antibiotics for a minimum of 2 days and longer if still having fever, leukocytosis, or other symptoms. Will admit to acute inpatient status as he will be here for >2 midnights. Problem: Acute
[2017-12-02] MEDS ORDERED: LEVALBUTEROL HCL 1.25 MG/3 ML AMPUL IH ONE (23:28)
[2017-12-02] MEDS ORDERED: LEVALBUTEROL HCL 1.25 MG/3 ML AMPUL IH SCH (23:30)
[2017-12-03] MEDS: AMPICILLIN SODIUM 2,000 MG in NORMAL SALINE 100 ML IV SCH ×6 (00:26→20:07)
[2017-12-03 06:03] LABS: Anion Gap 5.3 mmol/L (6.8-13.8); BUN/Creatinine Ratio 16.2 (9.0-21.6); Calcium * 8.3 mg/dL (7.9-10.9); Carbon Dioxide 36.1 mmol/L (24-32.6)
[2017-12-03 06:05] LABS: Potassium 2.4 mmol/L (3.4-4.6)
[2017-12-03] MEDS ORDERED: LEVALBUTEROL HCL 1.25 MG/3 ML AMPUL IH SCH (07:00)
--- NOTE | 2017-12-03 07:21 | ANES ---
Anesthesia Procedure Note Procedure Note: ANESTHESIA PROCEDURE NOTE Date of Procedure: 12/03/2017 Time of procedure: 7 AM. Performed by: ELSA Renner CRNA, MSN Preprocedure diagnosis: COPD, pneumonia, multiple previous IV attempts without success. Post procedure diagnosis: Same. Procedure: Venipuncture for IV access. Indications: Pneumonia, IV antibiotic requirements without IV access. Findings: See below. Details of the procedure: The patient was prepped with Betadine and alcohol, 0.1 mL of 1% lidocaine solution was injected at the intended IV site. #24- gauge IV was initiated in the left hand. Mr. Ovalle had particularly tough skin and a tough vein wall, however the vein was cannulated and flushed with ease. An IV loop and adapter was attached, the catheter was secured in place and flushed EBL: Minimal. Fluids: N/A. Specimen: N/A. Post procedure condition: The patient tolerated the procedure well. No complications were noted. Thank you for this consultation. Theodore Wakefield CRNA, ELSA, MSN
[2017-12-03] MEDS: PANTOPRAZOLE SODIUM 20 MG TABLET.DR PO SCH (07:28)
[2017-12-03] MEDS: INSULIN LISPRO 100 UNITS/ML VIAL SC SCH ×3 (07:28→17:44)
[2017-12-03] MEDS: POTASSIUM CHLORIDE IN WATER 100 ML IV SCH ×4 (08:09→13:43)
--- NOTE | 2017-12-03 08:39 | PN ---
Subjective - Date and Time Seen Date: 12/03/17 Time: 08:28 Subjective Narrative: Patient is afebrile. He is visibly dyspneic and coughs with each deep breath. His K is down to 2.4. Objective - Review of Systems Generalized/Overall Review: Denies: Chills, Fever Respiratory: Reports: Cough, Shortness of Breath, Wheezing Cardiac: Denies: Chest Pain, Palpitations Abdominal: Denies: Nausea, Vomiting Genitourinary Symptoms: Denies: Urgency, Frequency Musculoskeletal Complaints: Reports: Joint Pain - Vitals Vitals: Last Vital Signs Temp 37.0 C 12/03/17 08:25 Pulse 112 H 12/03/17 08:25 Resp 20 12/03/17 08:25 BP 112/68 12/03/17 08:25 Pulse Ox 96 12/03/17 08:25 - Abnormal Lab Findings Abnormal Lab Findings: Abnormal Lab Results 12/02/17 12/02/17 12/02/17 Range/Units 15:17 15:17 15:41 Hct 39.9 L (42.0-52.0) % Plt Count 149 L (150-450) K/mm3 Immature Gran % (Auto) 2.00 H (0.001-0.429) % Immature Gran # (Auto) 0.19 H (0.000-0.0310) K/mm3 Neutrophils % 86.6 H (42-75.0) % Lymphocytes % 7.3 L (20-51) % Neutrophils # 8.3 H (1.3-6.0) K/mm3 Lymphocytes # 0.70 L (1.5-3.5) k/mm3 Potassium 2.7 L (3.4-4.6) mmol/L Chloride 92 L (97-106) mmol/L Carbon Dioxide 35.1 H (24-32.6) mmol/L Anion Gap (6.8-13.8) mmol/L Random Glucose 249 H (70-110) mg/dL ALT 17 L (19-67) U/L Albumin 2.8 L (3.4-5.0) gm/dl Urine Protein 30 H (NEGATIVE) mg/dL Urine Glucose (UA) 250 H (NEGATIVE) mg/dL Urine Bilirubin 1 H (NEGATIVE) mg/dl Urine Urobilinogen 2.0 H (NORMAL) EU/dl Ur Leukocyte Esterase 25 H (NEGATIVE) /ul 12/03/17 Range/Units 05:20 Hct (42.0-52.0) % Plt Count (150-450) K/mm3 Immature Gran % (Auto) (0.001-0.429) % Immature Gran # (Auto) (0.000-0.0310) K/mm3 Neutrophils % (42-75.0) % Lymphocytes % (20-51) % Neutrophils # (1.3-6.0) K/mm3 Lymphocytes # (1.5-3.5) k/mm3 Potassium 2.4 L* (3.4-4.6) mmol/L Chloride 96 L (97-106) mmol/L Carbon Dioxide 36.1 H (24-32.6) mmol/L Anion Gap 5.3 L (6.8-13.8) mmol/L Random Glucose 239 H (70-110) mg/dL ALT (19-67) U/L Albumin (3.4-5.0) gm/dl Urine Protein (NEGATIVE) mg/dL Urine Glucose (UA) (NEGATIVE) mg/dL Urine Bilirubin (NEGATIVE) mg/dl Urine Urobilinogen (NORMAL) EU/dl Ur Leukocyte Esterase (NEGATIVE) /ul - Exam Constitutional: Present: Alert, Oriented x3, Cooperative, Mild distress, Looks Older than stated age ENT Exam: Present: hearing grossly normal Neck: Present: supple Respiratory: Present: decreased breath sounds, crackles, rhonchi, wheezing - occasional Cardiovascular/Chest: Present: regular rate, rhythm, no JVD, tachycardia Abdomen: Present: Normal bowel sounds, soft, nontender, nondistended Extremity: Present: no calf tenderness, pedal edema Assessment/Plan - Problems/Diagnosis (1) Hypokalemia Problem: Acute Narrative: k supplementation started. will get an EKG. (2) Bacteremia due to Enterococcus Problem: Acute Narrative: r/o beginning sepsis. (3) Neutrophilia Problem: Acute Narrative: 86.6% likely due to bacteremia r/o due to steroids. (4) COPD with exacerbation Problem: Acute Narrative: will increase his Duoneb to QID routine for today and hold his Adviar/Spiriva. continue with is prednisone. will get an ABG. (5) Tachycardia Problem: Acute Narrative: will get an EKG. (6) DM (diabetes mellitus), type 2 Problem: Chronic (7) HTN (hypertension) Problem: Chronic Qualifiers: Hypertension type: essential hypertension Qualified Code(s): I10 - Essential (primary) hypertension
[2017-12-03] MEDS ORDERED: TAMSULOSIN HCL 0.4 MG CAP.SR.24H PO SCH (09:00)
[2017-12-03] MEDS: ASPIRIN 325 MG TABLET.DR PO SCH (09:43)
[2017-12-03] MEDS: HYDROCHLOROTHIAZIDE 25 MG TABLET PO SCH (09:43)
[2017-12-03] MEDS: POTASSIUM CHLORIDE 20 MEQ TABLET.SA PO SCH ×2 (09:43→17:46)
[2017-12-03] MEDS: INSULIN DETEMIR 100 UNITS/ML VIAL SC SCH (09:44)
[2017-12-03] MEDS: FENOFIBRATE,MICRONIZED 134 MG CAPSULE PO SCH (09:46)
[2017-12-03] MEDS: CLOPIDOGREL BISULFATE 75 MG TABLET PO SCH (09:47)
[2017-12-03] MEDS: predniSONE 20 MG TABLET PO SCH (09:47)
[2017-12-03] MEDS: GABAPENTIN 600 MG TABLET PO SCH ×3 (09:47→17:47)
[2017-12-03] MEDS: NYSTATIN 60 ML BTL PO SCH ×4 (09:47→20:11)
[2017-12-03] MEDS: LISINOPRIL 20 MG TABLET PO SCH (09:47)
[2017-12-03] MEDS: ATENOLOL 25 MG TABLET PO SCH (09:48)
[2017-12-03] MEDS: ALBUTEROL SULFATE/IPRATROPIUM 3 ML NEBU IH SCH ×3 (11:15→18:18)
[2017-12-03] MEDS: ENOXAPARIN SODIUM 40 MG/0.4 ML SYRG SC SCH (12:06)
[2017-12-03] MEDS: TAMSULOSIN HCL 0.4 MG CAP.SR.24H PO SCH (18:36)
[2017-12-03] MEDS: SIMVASTATIN 40 MG TABLET PO SCH (20:13)
[2017-12-03] MEDS: POLYETHYLENE GLYCOL 3350 119 GM BTL PO SCH (23:01)
[2017-12-04] MEDS: AMPICILLIN SODIUM 2,000 MG in NORMAL SALINE 100 ML IV SCH ×4 (01:56→20:44)
[2017-12-04] MEDS: ALBUTEROL SULFATE 2.5 MG/0.5 ML VIAL.NEB IH PRN ×2 (04:12→21:53)
[2017-12-04] MEDS: ALBUTEROL SULFATE/IPRATROPIUM 3 ML NEBU IH SCH ×4 (06:10→18:11)
[2017-12-04] MEDS: INSULIN LISPRO 100 UNITS/ML VIAL SC SCH ×3 (07:04→16:55)
[2017-12-04] MEDS: PANTOPRAZOLE SODIUM 20 MG TABLET.DR PO SCH (07:04)
[2017-12-04] MEDS ORDERED: MAGNESIUM HYDROXIDE 30 ML UDC PO ONE (08:03)
--- NOTE | 2017-12-04 08:03 | PN ---
Subjective - Date and Time Seen Date: 12/04/17 Time: 07:58 Subjective Narrative: Patient is afebrile. Still with SOB. Denies F/C, diarrhea but has been constipated. Denies IV drug abuse. Objective - Review of Systems Generalized/Overall Review: Denies: Chills, Fever Respiratory: Reports: Cough, Shortness of Breath, Wheezing Cardiac: Denies: Chest Pain, Edema, Palpitations Abdominal: Reports: Constipation. Denies: Nausea, Vomiting, Diarrhea Genitourinary Symptoms: Denies: Urgency, Frequency Musculoskeletal Complaints: Reports: Joint Pain - Vitals Vitals: Last Vital Signs Temp 36.8 C 12/04/17 07:25 Pulse 101 H 12/04/17 07:25 Resp 18 12/04/17 07:25 BP 105/72 12/04/17 07:25 Pulse Ox 95 12/04/17 07:25 - Abnormal Lab Findings Abnormal Lab Findings: Abnormal Lab Results 12/03/17 Range/Units 09:40 pO2 75.6 L (83.0-108.0) mmHg HCO3 31.4 H (21.0-28.0) mmol/L Total CO2 32.6 H (19.0-24.0) mmol/L Base Excess 8.0 H (-2.0-3.0) mmol/L ABG pH 7.52 H (7.35-7.45) - Exam Constitutional: Present: Alert, Oriented x3, Cooperative, Looks Older than stated age ENT Exam: Present: hearing grossly normal Neck: Present: supple Respiratory: Present: decreased breath sounds, wheezing - occasional, No rales Cardiovascular/Chest: Present: regular rate, rhythm, no JVD, no murmur Abdomen: Present: Normal bowel sounds, soft, nontender, distended, hypoactive Extremity: Present: no calf tenderness, pedal edema Assessment/Plan - Problems/Diagnosis (1) Hypokalemia Problem: Acute Narrative: will recheck BMP (2) Bacteremia due to Enterococcus Problem: Acute Narrative: source? will AXR and Echo. continue with IV ampicillin. ADDENDUM: AXR shows colitis/constipation, no obstruction. Echo showed questionable AMVL mass/ vegetation vs calcifed chordae tendinae. will give him dulcolax and get stool for culture, CDiff and will show Echo to cardiology in the morning. He may need RDAHA. Will giove him 2 grams IV Rocephin in addition to his Ampicillin. If endocarditis will need to increase ampicillin dose. (3) Neutrophilia Problem: Acute (4) COPD with exacerbation Problem: Acute (5) Tachycardia Problem: Acute (6) DM (diabetes mellitus), type 2 Problem: Chronic (7) HTN (hypertension) Problem: Chronic Qualifiers: Hypertension type: essential hypertension Qualified Code(s): I10 - Essential (primary) hypertension (8) Constipation Problem: Acute Qualifiers: Constipation type: unspecified constipation type Qualified Code(s): K59.00 - Constipation, unspecified Narrative: will give him stool laxative.
[2017-12-04 08:06] LABS: Hematocrit 34.8 % (42.0-52.0); Hemoglobin 11.8 gm/dL (13.5-18.0); Mean Corpuscular Hemoglobin 30.2 pg (27-31); Mean Corpuscular Hgb Conc 33.9 g/dl (32-36); Mean Platelet Volume 9.4 fl (8-11.3); Platelet Count 117 K/mm3 (150-450); Red Blood Count 3.91 M/mm3 (4.7-6.0); Red Cell Distribution Width 13.3 % (11.5-14.0); White Blood Count 7.5 K/mm3 (4.0-10.5)
[2017-12-04 08:21] LABS: Anion Gap 6.7 mmol/L (6.8-13.8); BUN/Creatinine Ratio 21.1 (9.0-21.6); Calcium * 7.9 mg/dL (7.9-10.9); Carbon Dioxide 36.7 mmol/L (24-32.6); Estimated Creat Clear 66.6; Potassium 3.4 mmol/L (3.4-4.6)
[2017-12-04 08:22] LABS: Total Cells Counted 100
[2017-12-04] MEDS: ASPIRIN 325 MG TABLET.DR PO SCH (08:24)
[2017-12-04] MEDS: HYDROCHLOROTHIAZIDE 25 MG TABLET PO SCH (08:24)
[2017-12-04] MEDS: POTASSIUM CHLORIDE 20 MEQ TABLET.SA PO SCH ×2 (08:25→16:55)
[2017-12-04] MEDS: POLYETHYLENE GLYCOL 3350 119 GM BTL PO SCH (08:25)
[2017-12-04] MEDS: INSULIN DETEMIR 100 UNITS/ML VIAL SC SCH (08:25)
[2017-12-04] MEDS: FENOFIBRATE,MICRONIZED 134 MG CAPSULE PO SCH (08:25)
[2017-12-04] MEDS: ATENOLOL 25 MG TABLET PO SCH (08:26)
[2017-12-04] MEDS: GABAPENTIN 600 MG TABLET PO SCH ×3 (08:26→16:55)
[2017-12-04] MEDS: predniSONE 20 MG TABLET PO SCH (08:26)
[2017-12-04] MEDS: LISINOPRIL 20 MG TABLET PO SCH (08:26)
[2017-12-04] MEDS: NYSTATIN 60 ML BTL PO SCH ×4 (08:26→20:44)
[2017-12-04] MEDS: CLOPIDOGREL BISULFATE 75 MG TABLET PO SCH (08:26)
[2017-12-04 09:02] LABS: Eosinophil 1 % (0-3); Immature Granulocyte 3 (0-1); Lymphocyte 18 % (20-51); Monocyte 4 % (0-9); Neutrophil 74 % (42-75); Neutrophil # 5.6 K/mm3 (1.3-6.0)
[2017-12-04 09:04] LABS: RBC Morphology Normal (NORMAL)
[2017-12-04] MEDS: ENOXAPARIN SODIUM 40 MG/0.4 ML SYRG SC SCH (09:15)
[2017-12-04] MEDS: TAMSULOSIN HCL 0.4 MG CAP.SR.24H PO SCH (18:37)
[2017-12-04] MEDS ORDERED: BISACODYL 5 MG TABLET.DR PO ONE (19:00)
[2017-12-04] MEDS ORDERED: BISACODYL 10 MG SUPP.RECT RC ONE (19:00)
[2017-12-04] MEDS: SIMVASTATIN 40 MG TABLET PO SCH (20:43)
[2017-12-04] MEDS ORDERED: SENNOSIDES 8.6 MG TABLET PO SCH (21:00)
[2017-12-05] MEDS: AMPICILLIN SODIUM 2,000 MG in NORMAL SALINE 100 ML IV SCH ×4 (02:23→19:44)
[2017-12-05] MEDS: ALBUTEROL SULFATE 2.5 MG/0.5 ML VIAL.NEB IH PRN ×2 (02:41→14:11)
[2017-12-05] MEDS: ALBUTEROL SULFATE/IPRATROPIUM 3 ML NEBU IH SCH ×4 (06:22→18:04)
[2017-12-05] MEDS: PANTOPRAZOLE SODIUM 20 MG TABLET.DR PO SCH (07:21)
[2017-12-05] MEDS: INSULIN LISPRO 100 UNITS/ML VIAL SC SCH ×3 (07:21→16:35)
--- NOTE | 2017-12-05 07:42 | PN ---
Subjective - Date and Time Seen Date: 12/05/17 Time: 07:24 Subjective Narrative: Patient afebrile. Tmax 36.9. Had BM and also N/V last night. Objective - Review of Systems Generalized/Overall Review: Denies: Chills, Fever Respiratory: Reports: Cough, Shortness of Breath. Denies: Wheezing Cardiac: Denies: Chest Pain, Edema, Palpitations Abdominal: Reports: Nausea, Vomiting, Constipation - had BM last night. Denies : Abdominal Pain Genitourinary Symptoms: Denies: Urgency, Frequency Musculoskeletal Complaints: Reports: Joint Pain - Vitals Vitals: Last Vital Signs Temp 36.1 C 12/05/17 07:16 Pulse 98 12/05/17 07:16 Resp 18 12/05/17 07:16 BP 123/73 12/05/17 07:16 Pulse Ox 100 12/05/17 07:16 - Abnormal Lab Findings Abnormal Lab Findings: Abnormal Lab Results 12/04/17 12/04/17 12/04/17 Range/Units 08:00 08:00 Unknown RBC 3.91 L (4.7-6.0) M/mm3 Hgb 11.8 L (13.5-18.0) gm/dL Hct 34.8 L (42.0-52.0) % Plt Count 117 L (150-450) K/mm3 Lymphocytes % (Manual) 18 L (20-51) % Immature Granulocytes 3 H (0-1) Lymphocytes # (Manual) 1.4 L (1.5-3.5) k/mm3 Chloride 94 L (97-106) mmol/L Carbon Dioxide 36.7 H (24-32.6) mmol/L Anion Gap 6.7 L (6.8-13.8) mmol/L Random Glucose 184 H (70-110) mg/dL Stl C.difficile Tox A&B Formed stool A (Negative) - Exam Constitutional: Present: Alert, Oriented x3, Cooperative ENT Exam: Present: hearing grossly normal Respiratory: Present: decreased breath sounds, wheezing - ocassional. Absent: rales Cardiovascular/Chest: Present: regular rate, rhythm, no JVD, no murmur Abdomen: Present: nontender, no rebound tenderness, firm, distended, hypoactive Extremity: Present: no calf tenderness, pedal edema Lymphatic: Present: other - no janeways/osler/conjunctival petechie Assessment/Plan - Problems/Diagnosis (1) Bacteremia due to Enterococcus Problem: Acute Narrative: continue with IV antibiotics. he denies IV drug abuse although many years ago he did so. Echo possible vegetation on AMVL vs calcified chordae tendinae. AXR colitis- infection vs inflammatory vs ischemic less likely. will put patient in clear liquis for now and will show Echo to cardiology. If GIT is the source of his Enterococcus, will need IV ampicillin for 5-7 days. If there is avegetation then will need IV antibiotics for 6 weeks for endocarditis. (2) Hypokalemia Problem: Resolved (3) Neutrophilia Problem: Acute (4) COPD with exacerbation Problem: Acute (5) Tachycardia Problem: Resolved (6) DM (diabetes mellitus), type 2 Problem: Chronic (7) HTN (hypertension) Problem: Chronic Qualifiers: Hypertension type: essential hypertension Qualified Code(s): I10 - Essential (primary) hypertension (8) Constipation Problem: Acute Qualifiers: Constipation type: unspecified constipation type Qualified Code(s): K59.00 - Constipation, unspecified Narrative: had BM bu not his ususal yet.
[2017-12-05] MEDS: LISINOPRIL 20 MG TABLET PO SCH (08:01)
[2017-12-05] MEDS: predniSONE 20 MG TABLET PO SCH (08:01)
[2017-12-05] MEDS: ASPIRIN 325 MG TABLET.DR PO SCH (08:02)
[2017-12-05] MEDS: FENOFIBRATE,MICRONIZED 134 MG CAPSULE PO SCH (08:02)
[2017-12-05] MEDS: GABAPENTIN 600 MG TABLET PO SCH ×3 (08:02→16:39)
[2017-12-05] MEDS: POTASSIUM CHLORIDE 20 MEQ TABLET.SA PO SCH (08:02)
[2017-12-05] MEDS: CLOPIDOGREL BISULFATE 75 MG TABLET PO SCH (08:02)
[2017-12-05] MEDS: POLYETHYLENE GLYCOL 3350 119 GM BTL PO SCH (08:02)
[2017-12-05] MEDS: ATENOLOL 25 MG TABLET PO SCH (08:02)
[2017-12-05] MEDS: HYDROCHLOROTHIAZIDE 25 MG TABLET PO SCH (08:02)
[2017-12-05] MEDS: INSULIN DETEMIR 100 UNITS/ML VIAL SC SCH (08:03)
[2017-12-05] MEDS: ENOXAPARIN SODIUM 40 MG/0.4 ML SYRG SC SCH (09:24)
[2017-12-05] MEDS: SENNOSIDES 8.6 MG TABLET PO SCH ×2 (09:24→20:41)
[2017-12-05] MEDS: NYSTATIN 60 ML BTL PO SCH ×4 (09:24→20:43)
[2017-12-05] MEDS: TAMSULOSIN HCL 0.4 MG CAP.SR.24H PO SCH (19:44)
[2017-12-05] MEDS: SIMVASTATIN 40 MG TABLET PO SCH (20:42)
[2017-12-06] MEDS: AMPICILLIN SODIUM 2,000 MG in NORMAL SALINE 100 ML IV SCH ×4 (02:14→20:50)
[2017-12-06] MEDS: ALBUTEROL SULFATE/IPRATROPIUM 3 ML NEBU IH SCH ×2 (07:21→18:05)
[2017-12-06] MEDS: INSULIN LISPRO 100 UNITS/ML VIAL SC SCH ×3 (07:34→17:30)
[2017-12-06] MEDS: PANTOPRAZOLE SODIUM 20 MG TABLET.DR PO SCH (07:35)
--- NOTE | 2017-12-06 08:25 | PN ---
Subjective - Date and Time Seen Date: 12/06/17 Time: 08:18 Subjective Narrative: Patient NAD. Afebrile. Was wanting to AMA but agreed to stay. Progress to full liquids. Objective - Review of Systems Generalized/Overall Review: Denies: Chills, Fever Respiratory: Reports: Cough, Shortness of Breath, Wheezing - ocassional Cardiac: Denies: Chest Pain, Edema, Palpitations Abdominal: Reports: Constipation. Denies: Nausea, Vomiting, Abdominal Pain, Diarrhea Genitourinary Symptoms: Denies: Urgency, Frequency Musculoskeletal Complaints: Reports: Joint Pain - Vitals Vitals: Last Vital Signs Temp 36.2 C 12/06/17 07:13 Pulse 84 12/06/17 07:31 Resp 20 12/06/17 07:31 BP 103/71 12/06/17 07:13 Pulse Ox 98 12/06/17 07:21 - Abnormal Lab Findings Abnormal Lab Findings: Abnormal Lab Results 12/05/17 12/05/17 Range/Units 08:23 08:23 ESR 46 H (0-10) mm/hr C-Reactive Prot, Quant 2.2 H (0.0-0.9) mg/dL - Exam Constitutional: Present: Alert, Oriented x3, Cooperative, Looks Older than stated age ENT Exam: Present: hearing grossly normal Neck: Present: supple Respiratory: Present: decreased breath sounds. Absent: rales, wheezing Cardiovascular/Chest: Present: regular rate, rhythm, no JVD, no murmur Abdomen: Present: nontender, distended, hypoactive Extremity: Present: no calf tenderness, pedal edema Assessment/Plan - Problems/Diagnosis (1) Bacteremia due to Enterococcus Problem: Acute Narrative: likely GIT source from colitis. Discussed Echo findings with cardiology- he believes it is just thickening of the MVL . recommend repeat BC in a few days and if still positive then will do RADHA. Day # 4 of IV ampicillin. Will continue for at least 5-7 days and then change to oral. ADEENDUM: His repeat BC on this admission is growing the same Enterococcus Fecalis due to no treatment given yet due to AMA. (2) Hypokalemia Problem: Resolved (3) Neutrophilia Problem: Acute (4) COPD with exacerbation Problem: Acute (5) DM (diabetes mellitus), type 2 Problem: Chronic (6) HTN (hypertension) Problem: Chronic Qualifiers: Hypertension type: essential hypertension Qualified Code(s): I10 - Essential (primary) hypertension (7) Constipation Problem: Acute Qualifiers: Constipation type: unspecified constipation type Qualified Code(s): K59.00 - Constipation, unspecified Narrative: will give dulcolax. (8) Hypoglycemia Problem: Acute Narrative: had BS of 66 this morning and refusing hypoglycemia protocol . he is asymptomatic. patient agrees to full liquids now. will go down on his Lispro to low dose protocol and hold his morning levemir.
[2017-12-06] MEDS ORDERED: BISACODYL 10 MG SUPP.RECT RC ONE (08:35)
[2017-12-06] MEDS ORDERED: BISACODYL 5 MG TABLET.DR PO ONE (08:40)
[2017-12-06] MEDS: FLUTICASONE PROPION/SALMETEROL 14 PUFF DISK.W.DEV IH SCH ×2 (09:38→20:52)
[2017-12-06] MEDS: GABAPENTIN 600 MG TABLET PO SCH ×3 (09:39→16:49)
[2017-12-06] MEDS: HYDROCHLOROTHIAZIDE 25 MG TABLET PO SCH (09:40)
[2017-12-06] MEDS: POTASSIUM CHLORIDE 20 MEQ TABLET.SA PO SCH (09:40)
[2017-12-06] MEDS: ATENOLOL 25 MG TABLET PO SCH (09:40)
[2017-12-06] MEDS: predniSONE 20 MG TABLET PO SCH (09:40)
[2017-12-06] MEDS: CLOPIDOGREL BISULFATE 75 MG TABLET PO SCH (09:40)
[2017-12-06] MEDS: FENOFIBRATE,MICRONIZED 134 MG CAPSULE PO SCH (09:41)
[2017-12-06] MEDS: POLYETHYLENE GLYCOL 3350 119 GM BTL PO SCH (09:41)
[2017-12-06] MEDS: ASPIRIN 325 MG TABLET.DR PO SCH (09:41)
[2017-12-06] MEDS: SENNOSIDES 8.6 MG TABLET PO SCH ×2 (09:42→20:54)
[2017-12-06] MEDS: NYSTATIN 60 ML BTL PO SCH ×4 (09:42→20:53)
[2017-12-06] MEDS: LISINOPRIL 20 MG TABLET PO SCH (09:42)
[2017-12-06] MEDS: ENOXAPARIN SODIUM 40 MG/0.4 ML SYRG SC SCH (09:43)
[2017-12-06] MEDS: TIOTROPIUM BROMIDE 5 CAP INHALER IH SCH (09:45)
--- NOTE | 2017-12-06 10:00 | ECHO ---
This report is available in the EMR
--- NOTE | 2017-12-06 12:40 | ANES ---
Anesthesia Procedure Note Procedure Note: ANESTHESIA PROCEDURE NOTE Date of procedure: 12/06/2017. Time of procedure:[]. 1225 Performed by: Jaspreet Campbell CRNA Technical Staff Assistant: [] None . Preprocedure diagnosis: []. Sepsis. Difficult IV access. Post procedure diagnosis: Same. Procedure:[] IV Indications: []. IV antibiotic therapy. Difficult IV access. Findings: [] 22-gauge Angiocath IV started and patient's right wrist. EBL: Minimal. Fluids: N/A. Specimen: N/A. Post procedure condition: The patient tolerated the procedure well. No complications were noted. Thank you for this consultation Jaspreet Campbell CRNA
[2017-12-06] MEDS: TAMSULOSIN HCL 0.4 MG CAP.SR.24H PO SCH (18:45)
[2017-12-06] MEDS: SIMVASTATIN 40 MG TABLET PO SCH (20:55)
[2017-12-06] MEDS: ALBUTEROL SULFATE 2.5 MG/0.5 ML VIAL.NEB IH PRN (22:55)
[2017-12-07] MEDS: AMPICILLIN SODIUM 2,000 MG in NORMAL SALINE 100 ML IV SCH ×3 (02:31→13:02)
[2017-12-07 05:22] LABS: Anion Gap 6.9 mmol/L (6.8-13.8); BUN/Creatinine Ratio 15.5 (9.0-21.6); Calcium * 7.8 mg/dL (7.9-10.9); Carbon Dioxide 31.9 mmol/L (24-32.6); Estimated Creat Clear 71.3; Potassium 3.8 mmol/L (3.4-4.6)
[2017-12-07 05:34] LABS: Hematocrit 32.5 % (42.0-52.0); Hemoglobin 10.8 gm/dL (13.5-18.0); Mean Corpuscular Hemoglobin 29.9 pg (27-31); Mean Corpuscular Hgb Conc 33.2 g/dl (32-36); Mean Platelet Volume 8.9 fl (8-11.3); Platelet Count 214 K/mm3 (150-450); Red Blood Count 3.61 M/mm3 (4.7-6.0); Red Cell Distribution Width 13.9 % (11.5-14.0); White Blood Count 8.7 K/mm3 (4.0-10.5)
[2017-12-07 05:38] LABS: Total Cells Counted 100
[2017-12-07] MEDS: ALBUTEROL SULFATE/IPRATROPIUM 3 ML NEBU IH SCH (06:05)
[2017-12-07 06:14] LABS: Immature Granulocyte 4 (0-1); Lymphocyte 15 % (20-51); Monocyte 8 % (0-9); Neutrophil 73 % (42-75); Neutrophil # 6.4 K/mm3 (1.3-6.0)
[2017-12-07] MEDS: INSULIN LISPRO 100 UNITS/ML VIAL SC SCH ×2 (06:59→11:43)
[2017-12-07] MEDS: PANTOPRAZOLE SODIUM 20 MG TABLET.DR PO SCH (07:00)
--- NOTE | 2017-12-07 07:53 | DS ---
(1) Colitis presumed infectious Problem: Acute (2) Bacteremia due to Enterococcus Problem: Acute (3) Hypokalemia Problem: Resolved (4) Neutrophilia Problem: Resolved (5) COPD with exacerbation Problem: Resolved (6) DM (diabetes mellitus), type 2 Problem: Chronic (7) HTN (hypertension) Problem: Chronic Qualifiers: Hypertension type: essential hypertension Qualified Code(s): I10 - Essential (primary) hypertension (8) Constipation Problem: Resolved Qualifiers: Constipation type: unspecified constipation type Qualified Code(s): K59.00 - Constipation, unspecified (9) Hypoglycemia Problem: Resolved Description of Stay: Kvng Ovalle, is a 62-yr-old WM, with a PMH of: Asthma, COPD, DM II, HTN, HLD & Osteoarthritis who was readmitted on for shortness of breath and bacteremia . He says he was still sick. He went home AMA on 11/29/2017 despite knowing that the preliminary reading of his blood culture was growing gram positive cocci in chains. He went home on Levaquin/ Prednisone for his ACOPDE on top of his regular inhalers and nebulizers. His cough is still productive and brings up thick yellow phlegm. His WBC was still WNL but with LT shift. On his last admission, D-dimer --> 0.87, but follow-up with CT chest did not show any evidence of pulmonary embolism.His CXR did not show acute infiltrates and his EKG showed sinus tachycardia with a negative troponin. He was also started on nystatin swish and swallow for oral thrush then . His blood culture showed enterococcus fecalis on 2 bottles. He was started on IV Ampicillin with htis admission . His UA showed NG and repeat CXR showed no pneumonia. We did an Echo which showed a suspicious vegetation on his AMVL. Additional Rocephin was given. I showed the Echo to our squad sergeant and he felt that it was just thickening of the mitral valve leaflet and he recommended repeating the BC and if still positive, then he will recommend RADHA. The patient did not exhibit the classical clinical criteria for Endocarditis. His AXR showed colitis which likey is the source of his bacteremia. He was kept on clear liquids and then progressed to full liquids and IV Ampicillin was continued for a total of 5 days. We will now discharge him on PO Ampicillin. Will repeat his BC on Sunday. Procedures Performed: none Results and Findings: Pending Mircobiology Results 12/04/17 Unknown Stool Stool Culture - Preliminary No Pathogens Isolated Lab Pending Results 12/02/17 15:17: WBC 9.6, RBC 4.70, Hgb 13.9, Hct 39.9 L, MCV 84.9, MCH 29.6, MCHC 34.8, RDW 13.0, Plt Count 149 L, MPV 9.0, Immature Gran % (Auto) 2.00 H, Immature Gran # (Auto) 0.19 H, Neutrophils % 86.6 H, Lymphocytes % 7.3 L, Monocytes % 3.7, Eosinophils % 0.1, Basophils % 0.3, Nucleated RBC % 0.0, Neutrophils # 8.3 H, Lymphocytes # 0.70 L, Monocytes # 0.4, Eosinophils # 0.0, Absolute Basophils 0.0 12/02/17 15:17: Sodium 133, Plasma Sodium 135, Potassium 2.7 L, Chloride 92 L, Carbon Dioxide 35.1 H, Anion Gap 8.6, BUN 11, Creatinine 0.75, Est GFR (Non-Af Amer) 113 D, BUN/Creatinine Ratio 14.7, Random Glucose 249 H, Calcium 9.0, Calcium Adj for Albumin 9.6, Total Bilirubin 0.6, AST 17, ALT 17 L, Alkaline Phosphatase 74, Total Protein 7.3, Albumin 2.8 L 12/02/17 15:17: Lactic Acid, Venous 1.5 12/02/17 15:41: Urine Color Yellow, Urine Appearance Clear, Urine pH 6.5, Ur Specific [place] 1.010, Urine Protein 30 H, Urine Glucose (UA) 250 H, Urine Ketones 5, Urine Blood Negative, Urine Nitrate Negative, Urine Bilirubin 1 H, Urine Ictotest Negative, Prot Sulfosalicylic Acd 1+, Urine Urobilinogen 2.0 H, Ur Leukocyte Esterase 25 H, Urine RBC Trace, Urine WBC 0-5, Ur Epithelial Cells 0-5, Urine Bacteria Trace, Urine Culture Comments Culture to follow 12/03/17 05:20: Sodium 135, Plasma Sodium 137, Potassium 2.4 L*, Chloride 96 L, Carbon Dioxide 36.1 H, Anion Gap 5.3 L, BUN 12, Creatinine 0.74, Est GFR (Non- Af Amer) 114, BUN/Creatinine Ratio 16.2, Random Glucose 239 H, Calcium 8.3 12/03/17 09:40: pCO2 39.2, pO2 75.6 L, HCO3 31.4 H, Total CO2 32.6 H, Base Excess 8.0 H, ABG pH 7.52 H, ABG O2 Sat (Measured) 96.4 12/04/17 08:00: WBC 7.5 D, RBC 3.91 L, Hgb 11.8 L, Hct 34.8 L, MCV 89.0, MCH 30.2, MCHC 33.9, RDW 13.3, Plt Count 117 L, MPV 9.4, Neutrophils % (Manual) 74, Lymphocytes % (Manual) 18 L, Monocytes % (Manual) 4, Eosinophils % (Manual) 1, Immature Granulocytes 3 H, Neutrophils # (Manual) 5.6, Lymphocytes # (Manual) 1.4 L, Monocytes # (Manual) 0.3, Eosinophils # (Manual) 0.1, Nucleated RBCs 1.0 , RBC Morphology Normal 12/04/17 08:00: Sodium 134, Plasma Sodium 135, Potassium 3.4 D, Chloride 94 L, Carbon Dioxide 36.7 H, Anion Gap 6.7 L, BUN 19 D, Creatinine 0.90, Est GFR (Non -Af Amer) 91 D, BUN/Creatinine Ratio 21.1, Random Glucose 184 H, Calcium 7.9 12/04/17 : Stl C.difficile Tox A&B Formed stool A 12/05/17 08:23: ESR 46 H 12/05/17 08:23: C-Reactive Prot, Quant 2.2 H 12/07/17 05:14: WBC 8.7, RBC 3.61 L, Hgb 10.8 L, Hct 32.5 L, MCV 90.0, MCH 29.9 , MCHC 33.2, RDW 13.9, Plt Count 214, MPV 8.9, Neutrophils % (Manual) 73, Lymphocytes % (Manual) 15 L, Monocytes % (Manual) 8, Immature Granulocytes 4 H, Neutrophils # (Manual) 6.4 H, Lymphocytes # (Manual) 1.3 L, Monocytes # (Manual ) 0.7 12/07/17 05:14: Sodium 135, Plasma Sodium 136, Potassium 3.8, Chloride 100, Carbon Dioxide 31.9, Anion Gap 6.9, BUN 13, Creatinine 0.84, Est GFR (Non-Af Amer) 99, BUN/Creatinine Ratio 15.5, Random Glucose 158 H, Calcium 7.8 L Discharge Location: Home Disposition: Home self-care Condition: Stable Discharge Activity: Activity as tolerated Referrals: Yarelis Marley MD [Primary Care Provider] - Problem Oriented Discharge Instructions to Patient/Family: Sepsis, Adult Additional Patient Instructions (free text): Follow up with Dr. Marley on Sunday, December 10, 2017, at 10:00 AM. Prescriptions (Any new or edited meds): Ampicillin Trihydrate 1,000 mg PO QID 5 Days #40 cap Atorvastatin Calcium 20 mg PO DAILY #30 tab guaiFENesin [Mucinex] 600 mg PO BID #30 tablet.sa Polyethylene Glycol 3350 [Miralax] 17 gm PO DAILY #30 btl Sennosides [Senokot] 17.2 mg PO BID #60 tab Complete Home Medications List: Complete Home Medication List: Aspirin 325 mg PO DAILY 03/05/14 Atenolol [Tenormin] 25 mg PO DAILY 03/05/14 Clopidogrel Bisulfate [Plavix] 75 mg PO DAILY 03/05/14 Fluticasone/Salmeterol [Advair 250-50 Diskus] 1 puff IH BID 03/05/14 Gabapentin [Neurontin] 600 mg PO TID 03/05/14 Hydrochlorothiazide [Hydrodiuril] 25 mg PO DAILY 03/05/14 Insulin Aspart [Novolog] See Protocol SC DAILY 03/05/14 Insulin Detemir [Levemir] 50 unit SQ DAILY 03/05/14 Lisinopril [Zestril] 20 mg PO DAILY 03/05/14 Omeprazole [Prilosec] 20 mg PO DAILY 03/05/14 Simvastatin [Zocor] 40 mg PO HS 03/05/14 Tiotropium [place] [Spiriva] 18 mcg IH DAILY 03/05/14 Albuterol Sulfate [Proair Hfa] 1 - 2 puff IH Q4H PRN 03/31/17 Petrolatum,White [Aquaphor] 1 appl TP BID #50 gm 03/31/17 Tamsulosin HCl [Flomax] 0.4 mg PO DAILY 03/31/17 Albuterol Sulfate/Ipratropium [Duoneb 2.5-0.5MG/3ML Soln] 3 ml IH BID PRN #7 nebu 11/29/17 Potassium Chloride [Klor-Con M20] 20 meq PO BID #60 tab.er.prt 11/29/17 Ampicillin Trihydrate 1,000 mg PO QID 5 Days #40 cap 12/07/17 Atorvastatin Calcium 20 mg PO DAILY #30 tab 12/07/17 Polyethylene Glycol 3350 [Miralax] 17 gm PO DAILY #30 btl 12/07/17 Sennosides [Senokot] 17.2 mg PO BID #60 tab 12/07/17 guaiFENesin [Mucinex] 600 mg PO BID #30 tablet.sa 12/07/17
[2017-12-07] MEDS: FLUTICASONE PROPION/SALMETEROL 14 PUFF DISK.W.DEV IH SCH (09:10)
[2017-12-07] MEDS: CLOPIDOGREL BISULFATE 75 MG TABLET PO SCH (09:12)
[2017-12-07] MEDS: LISINOPRIL 20 MG TABLET PO SCH (09:12)
[2017-12-07] MEDS: FENOFIBRATE,MICRONIZED 134 MG CAPSULE PO SCH (09:12)
[2017-12-07] MEDS: HYDROCHLOROTHIAZIDE 25 MG TABLET PO SCH (09:12)
[2017-12-07] MEDS: GABAPENTIN 600 MG TABLET PO SCH ×2 (09:12→13:03)
[2017-12-07] MEDS: TIOTROPIUM BROMIDE 5 CAP INHALER IH SCH (09:12)
[2017-12-07] MEDS: ASPIRIN 325 MG TABLET.DR PO SCH (09:12)
[2017-12-07] MEDS: POTASSIUM CHLORIDE 20 MEQ TABLET.SA PO SCH (09:13)
[2017-12-07] MEDS: SENNOSIDES 8.6 MG TABLET PO SCH (09:13)
[2017-12-07] MEDS: ENOXAPARIN SODIUM 40 MG/0.4 ML SYRG SC SCH (09:13)
[2017-12-07] MEDS: ATENOLOL 25 MG TABLET PO SCH (09:13)
[2017-12-07] MEDS: POLYETHYLENE GLYCOL 3350 119 GM BTL PO SCH (09:14)
[2017-12-07] MEDS: NYSTATIN 60 ML BTL PO SCH ×2 (09:14→13:03)
[2017-12-07 12:53] VITALS: BP 102/49
[2017-12-07 18:22] LABS: P-ANCA Titer DNR titer (<1:20)
== END 2017-12-07 14:00 | disposition home or self-care (01) | DRG 191 ==
LOC: ER 14:09 → MS 16:26
PROVIDERS: ADMIT Family Medicine; ATTEND Internal Medicine
CPT/HCPCS: 36415; 36600; 71020; 71046; 71100; 71275; 74019; 74020; 80048; 80053; 81001; 82803; 83519; 83605; 83880; 84484; 85007; 85025; 85379; 85652; 86021; 86140; 87040; 87045; 87046; 87077; 87086; 87186; 87493; 93005; 93306; 94640; 94664; 94760; 96361; 96365; 96372; 96375; 96376; 99284; 99285; G0378; J2405

== ENCOUNTER 2018-04-11 12:28 | Inpatient (IN) | payer MEDICAID, MEDICARE ==
[2018-04-11] MEDS ORDERED: NORMAL SALINE 1,000 ML IV ONE (13:06)
[2018-04-11 13:34] LABS: Hematocrit 38.8 % (42.0-52.0); Hemoglobin 12.3 gm/dL (13.5-18.0); Mean Cell Volume 84.2 fl (78-100); Mean Corpuscular Hemoglobin 26.7 pg (27-31); Mean Corpuscular Hgb Conc 31.7 g/dl (32-36); Mean Platelet Volume 8.3 fl (8-11.3); Neutrophil # 10.7 K/mm3 (1.3-6.0); Platelet Count 230 K/mm3 (150-450); Red Blood Count 4.61 M/mm3 (4.7-6.0); Red Cell Distribution Width 15.7 % (11.5-14.0); White Blood Count 11.6 K/mm3 (4.0-10.5)
[2018-04-11 13:45] LABS: Albumin * 2.4 gm/dl (3.4-5.0); Anion Gap 8.2 mmol/L (6.8-13.8); BUN/Creatinine Ratio 28.1 (9.0-21.6); Bilirubin, Total 0.5 mg/dL (0.0-1.1); Ca. Corrected For Albumin 9.7 mg/dL (8.4-10.2); Calcium * 8.7 mg/dL (7.9-10.9); Carbon Dioxide 32.4 mmol/L (24-32.6); Potassium 3.6 mmol/L (3.4-4.6); Total Protein 6.9 gm/dL (6.2-8.2); Troponin I 0.054 ng/mL (0.00-0.10)
[2018-04-11 14:27] LABS: Urine Bilirubin 1 mg/dl (NEGATIVE); Urine Blood 25 /ul (NEGATIVE); Urine Ketone 5 mg/dL (NEGATIVE); Urine Nitrite Negative (NEGATIVE); Urine Protein 30 mg/dL (NEGATIVE); Urine Specific Gravity 1.025 SP.GR. (1.005-1.030); Urine Urobilinogen Normal (NORMAL)
[2018-04-11 14:39] LABS: Urine Appearance Clear (CLEAR); Urine Color Yellow
[2018-04-11 14:40] LABS: Urine Bacteria None Seen; Urine RBC 0-5 /hpf (0-5); Urine WBC TRACE /hpf (0-5)
[2018-04-11 14:59] LABS: Cocaine Ur Negative (NEGATIVE); Urine Barbiturate Negative (NEGATIVE); Urine Benzodiazepines Negative (NEGATIVE); Urine Opiates Negative (NEGATIVE); Urine PCP Negative (NEGATIVE); Urine THC Negative (NEGATIVE)
[2018-04-11] MEDS ORDERED: ALBUTEROL SULFATE/IPRATROPIUM 3 ML NEBU IH ONE (15:38)
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
--- NOTE | 2018-04-11 18:35 | HP ---
Chief Complaint - Chief Complaint Date of Service: 04/11/18 Time of Service: 18:20 Chief Complaint: weakness History of Present Illness: Sushil rodríguez, is a 62-year-old white male, with past medical history of COPD, diabetes mellitus type 2, hypertension, hyperlipidemia, who was admitted on 04/11/2018 for weakness. One week prior to admission the patient said he started getting generalized weakness. 4 days prior to admission he started noticing weakness of his right side of his body and he kept falling down. Today the patient said he was on the floor and unable to get up since one day prior to admission as he cannot move his RUE and RLE. He called the EMS and he was brought to our emergency room where blood work were not so significant significant except for elevated white blood cell count. His head CT scan showed no acute intracranial process. He says that 4-5 days ago he ran out of all of his medications. He denies any chest pains, shortness of breath, fever or chills Medical History (Last Reviewed 04/11/18 @ 17:54 by Linda Boyer RN) Abnormal angiogram COPD (chronic obstructive pulmonary disease) Diabetes mellitus, type II HLD (hyperlipidemia) HTN (hypertension) Osteoarthritis Surgical History: Surgical History (Last Reviewed 04/11/18 @ 17:54 by Linda Boyer RN) History of cataract surgery (Acute) H/O colonoscopy (Acute) Hx of angiography (Acute) Family History: Family History (Last Reviewed 04/11/18 @ 17:54 by Linda Boyer RN) Father Stomach cancer Mother COPD (chronic obstructive pulmonary disease) Social History: Patient Lives/Resources Home Utilized Preferred Language British Do you have any anglican or Yes: anabaptism cultural preference? Smoking Status Current every day smoker Have you smoked in the past 12 Yes months Do you dip or chew tobacco No Abuse History No History of abuse Psych History No pertinent hx Alcohol Use heavy Drug Use none (Last Updated 12/27/17 @ 18:05 by Yarelis Marley MD) No Social History Section defined Review Of Systems (GEN) - Review of Systems Generalized/Overall Review: Present: Weakness. Absent: Chills, Fever EENTM: Absent: Blurred Vision Respiratory: Present: Cough, Shortness of Breath Cardiac: Absent: Chest Pain, Edema, Palpitations Abdominal: Present: Nausea. Absent: Vomiting Genitourinary: Absent: Urgency, Frequency Musculoskeletal: Present: Joint Pain Neurological: Present: Weakness - right side Immunizations: IMMUNIZATION HX Immunizations Up to Date Yes History of Influenza Vaccine No Hx Pneumococcal Vaccination No Allergies/Adverse Reactions: Allergies Allergy/AdvReac Type Severity Reaction Status Date / Time No Known Allergies Allergy Verified 04/11/18 17:54 Home Medications: HOME MEDICATIONS Atenolol [Tenormin] 25 mg PO DAILY 03/05/14 [Last Taken Unknown] Clopidogrel Bisulfate [Plavix] 75 mg PO DAILY 03/05/14 [Last Taken Unknown] Gabapentin [Neurontin] 600 mg PO TID 03/05/14 [Last Taken Unknown] Hydrochlorothiazide [Hydrodiuril] 25 mg PO DAILY 03/05/14 [Last Taken Unknown] Lisinopril [Zestril] 20 mg PO DAILY 03/05/14 [Last Taken Unknown] Omeprazole [Prilosec] 20 mg PO DAILY 03/05/14 [Last Taken Unknown] Simvastatin [Zocor] 40 mg PO HS 03/05/14 [Last Taken Unknown] Tamsulosin HCl [Flomax] 0.4 mg PO DAILY 03/31/17 [Last Taken Unknown] Potassium Chloride [Klor-Con M20] 20 meq PO BID #60 tab.er.prt 11/29/17 [Last Taken Unknown] Atorvastatin Calcium 20 mg PO DAILY #30 tab 12/07/17 [Last Taken Unknown] Polyethylene Glycol 3350 [Miralax] 17 gm PO DAILY #30 btl 12/07/17 [Last Taken Unknown] ipratropium-albuterol 0.5 mg-3 mg(2.5 mg base)/3 mL nebulization soln 3 ml IH BID #540 ml 03/26/18 [Last Taken Unknown] Albuterol Sulfate [Proair Hfa] 1 - 2 puff IH Q2H PRN 04/11/18 [Last Taken Unknown] Ampicillin Trihydrate 500 mg PO QID 04/11/18 [Last Taken Unknown] Fenofibrate Nanocrystallized [Fenofibrate] 145 mg PO DAILY 04/11/18 [Last Taken Unknown] Fluticasone/Salmeterol [Advair 250-50 Diskus] 1 puff IH BID 04/11/18 [Last Taken Unknown] Levofloxacin [Levaquin] 500 mg PO DAILY 04/11/18 [Last Taken Unknown] Nystatin 5 ml PO QID 04/11/18 [Last Taken Unknown] Umeclidinium [place] [Incruse Ellipta] 1 puff IH DAILY 04/11/18 [Last Taken Unknown] metFORMIN HCL [Metformin HCl] 500 mg PO BID 04/11/18 [Last Taken Unknown] predniSONE [Prednisone] 10 mg PO DAILY 04/11/18 [Last Taken Unknown] Exam - Exam Vital Signs: Vital Signs - Last Taken Temp 36.6 C 04/11/18 17:55 Pulse 94 04/11/18 17:55 Resp 18 04/11/18 17:55 BP 154/83 H 04/11/18 17:55 Pulse Ox 97 04/11/18 17:55 Constitutional: Present: Alert, Oriented x3, Cooperative ENT Exam: Present: hearing grossly normal Eye Exam: bilateral eye: normal inspection, PERRL, EOMI Neck: Present: supple Respiratory: Present: decreased breath sounds, No rales, No wheezing Cardiovascular/Chest: Present: regular rate, rhythm, no JVD, no murmur Abdomen: Present: Normal bowel sounds, soft, nontender, nondistended Extremity: Present: pedal edema, other Neurologic: Present: oriented x 3, facial droop, motor weakness - right hemiparesis. Absent: sensory deficit Diagnostic Studies: Abnormal Lab Results 04/11/18 04/11/18 04/11/18 Range/Units 13:25 13:25 14:10 WBC 11.6 H (4.0-10.5) K/mm3 RBC 4.61 L (4.7-6.0) M/mm3 Hgb 12.3 L (13.5-18.0) gm/dL Hct 38.8 L (42.0-52.0) % MCH 26.7 L (27-31) pg MCHC 31.7 L (32-36) g/dl RDW 15.7 H (11.5-14.0) % Immature Gran % (Auto) 0.90 H (0.001-0.429) % Immature Gran # (Auto) 0.10 H (0.000-0.0310) K/mm3 Neutrophils % 92.0 H (42-75.0) % Lymphocytes % 4.3 L (20-51) % Neutrophils # 10.7 H (1.3-6.0) K/mm3 Lymphocytes # 0.50 L (1.5-3.5) k/mm3 Chloride 96 L (97-106) mmol/L Est GFR (Non-Af Amer) 154 H D (60-130) mL/min BUN/Creatinine Ratio 28.1 H (9.0-21.6) Random Glucose 152 H (70-110) mg/dL AST 75 H (0-48) U/L Creatine Kinase 601 H (0-259) U/L Albumin 2.4 L (3.4-5.0) gm/dl Urine Protein 30 H (NEGATIVE) mg/dL Urine Blood 25 H (NEGATIVE) /ul Urine Bilirubin 1 H (NEGATIVE) mg/dl Urine Ictotest Positive H (NEGATIVE) Prot Sulfosalicylic Acd 2+ H (0) mg/dL Laboratory Results WBC 11.6 K/mm3 (4.0-10.5) H 04/11/18 13:25 RBC 4.61 M/mm3 (4.7-6.0) L 04/11/18 13:25 Hgb 12.3 gm/dL (13.5-18.0) L 04/11/18 13:25 Hct 38.8 % (42.0-52.0) L 04/11/18 13:25 MCV 84.2 fl (78-100) 04/11/18 13:25 MCH 26.7 pg (27-31) L 04/11/18 13:25 MCHC 31.7 g/dl (32-36) L 04/11/18 13:25 RDW 15.7 % (11.5-14.0) H 04/11/18 13:25 Plt Count 230 K/mm3 (150-450) 04/11/18 13:25 MPV 8.3 fl (8-11.3) 04/11/18 13:25 Immature Gran % (Auto) 0.90 % (0.001-0.429) H 04/11/18 13:25 Immature Gran # (Auto) 0.10 K/mm3 (0.000-0.0310) H 04/11/18 13:25 Neutrophils % 92.0 % (42-75.0) H 04/11/18 13:25 Lymphocytes % 4.3 % (20-51) L 04/11/18 13:25 Monocytes % 2.7 % (0.0-9) 04/11/18 13:25 Eosinophils % 0.0 % (0.0-3.0) 04/11/18 13:25 Basophils % 0.1 % (0.0-1.0) 04/11/18 13:25 Nucleated RBC % 0.0 k/mm3 (0-1) 04/11/18 13:25 Neutrophils # 10.7 K/mm3 (1.3-6.0) H 04/11/18 13:25 Lymphocytes # 0.50 k/mm3 (1.5-3.5) L 04/11/18 13:25 Monocytes # 0.3 k/mm3 (0.0-1.0) 04/11/18 13:25 Eosinophils # 0.0 k/mm3 (0.0-0.7) 04/11/18 13:25 Absolute Basophils 0.0 k/mm3 (0.0-0.1) 04/11/18 13:25 Sodium 133 mmol/L (132-142) 04/11/18 13:25 Plasma Sodium 134 mmol/L (130-142) 04/11/18 13:25 Potassium 3.6 mmol/L (3.4-4.6) 04/11/18 13:25 Chloride 96 mmol/L (97-106) L 04/11/18 13:25 Carbon Dioxide 32.4 mmol/L (24-32.6) 04/11/18 13:25 Anion Gap 8.2 mmol/L (6.8-13.8) 04/11/18 13:25 BUN 16 mg/dL (6-23) 04/11/18 13:25 Creatinine 0.57 mg/dL (0.4-1.4) 04/11/18 13:25 Est GFR (Non-Af Amer) 154 mL/min (60-130) H D 04/11/18 13:25 BUN/Creatinine Ratio 28.1 (9.0-21.6) H 04/11/18 13:25 Random Glucose 152 mg/dL (70-110) H 04/11/18 13:25 Lactic Acid, Venous 1.6 mmol/L (0.4-2.0) 04/11/18 13:25 Calcium 8.7 mg/dL (7.9-10.9) 04/11/18 13:25 Calcium Adj for Albumin 9.7 mg/dL (8.4-10.2) 04/11/18 13:25 Total Bilirubin 0.5 mg/dL (0.0-1.1) 04/11/18 13:25 AST 75 U/L (0-48) H 04/11/18 13:25 ALT 36 U/L (19-67) 04/11/18 13:25 Alkaline Phosphatase 83 U/L (50-170) 04/11/18 13:25 Ammonia Less than 17.0 mcmol/L (11-35) 04/11/18 15:05 Creatine Kinase 601 U/L (0-259) H 04/11/18 13:25 Troponin I 0.054 ng/mL (0.00-0.10) 04/11/18 13:25 Total Protein 6.9 gm/dL (6.2-8.2) 04/11/18 13:25 Albumin 2.4 gm/dl (3.4-5.0) L 04/11/18 13:25 Urine Color Yellow 04/11/18 14:10 Urine Appearance Clear (CLEAR) 04/11/18 14:10 Urine pH 6.0 pH (5.0-7.0) 04/11/18 14:10 Ur Specific Duncan 1.025 SP.GR. (1.005-1.030) 04/11/18 14:10 Urine Protein 30 mg/dL (NEGATIVE) H 04/11/18 14:10 Urine Glucose (UA) Negative mg/dL (NEGATIVE) 04/11/18 14:10 Urine Ketones 5 mg/dL (NEGATIVE) 04/11/18 14:10 Urine Blood 25 /ul (NEGATIVE) H 04/11/18 14:10 Urine Nitrate Negative (NEGATIVE) 04/11/18 14:10 Urine Bilirubin 1 mg/dl (NEGATIVE) H 04/11/18 14:10 Urine Ictotest Positive (NEGATIVE) H 04/11/18 14:10 Prot Sulfosalicylic Acd 2+ mg/dL (0) H 04/11/18 14:10 Urine Urobilinogen Normal EU/dl (NORMAL) 04/11/18 14:10 Ur Leukocyte Esterase Negative /ul (NEGATIVE) 04/11/18 14:10 Urine RBC 0-5 /hpf (0-5) 04/11/18 14:10 Urine WBC Trace /hpf (0-5) 04/11/18 14:10 Ur Epithelial Cells 0-5 /hpf (0-5) 04/11/18 14:10 Urine Bacteria None seen (NONE) 04/11/18 14:10 Urine Culture Comments Culture to follow 04/11/18 14:10 Urine Opiates Screen Negative (NEGATIVE) 04/11/18 14:10 Barbiturate Screen Negative (NEGATIVE) 04/11/18 14:10 Ur Phencyclidine Scrn Negative (NEGATIVE) 04/11/18 14:10 Urine Amphetamine Negative (NEGATIVE) 04/11/18 14:10 U Benzodiazepines Scrn Negative (NEGATIVE) 04/11/18 14:10 Urine Cocaine Screen Negative (NEGATIVE) 04/11/18 14:10 Urine Marijuana (THC) Negative (NEGATIVE) 04/11/18 14:10 Ethyl Alcohol 7.0 mg/dL (0.0-10.0) 04/11/18 13:25 Assessment/Plan - Narrative Narrative: Will resume his home medications with aspiration precautions. - Assessment/Plan (1) Weakness Assessment: right side likely CVA Problem: Acute (2) Stroke-like symptom Assessment: likely LMCA territory. will get MRI. will add ASA to his plavix. will get CUS and Echo with bubble study in the morning. Problem: Acute (3) COPD (chronic obstructive pulmonary disease) Problem: Chronic Qualifiers: COPD type: unspecified COPD Qualified Code(s): J44.9 - Chronic obstructive pulmonary disease, unspecified (4) Hyperlipidemia Problem: Chronic Qualifiers: Hyperlipidemia type: pure hypercholesterolemia Qualified Code(s): E78.00 - Pure hypercholesterolemia, unspecified; E78.0 - Pure hypercholesterolemia (5) HTN (hypertension) Problem: Chronic Qualifiers: Hypertension type: essential hypertension Qualified Code(s): I10 - Essential (primary) hypertension (6) DM (diabetes mellitus), type 2 Problem: Chronic Qualifiers:
[2018-04-11] MEDS ORDERED: ALBUTEROL SULFATE 200 PUFF INHALER IH PRN (18:36)
[2018-04-11] MEDS ORDERED: DEXTROSE 5%-NORMAL SALINE 1,000 ML IV PRN (19:01)
[2018-04-11] MEDS ORDERED: ALBUTEROL SULFATE 200 PUFF INHALER IH ONE (19:56)
[2018-04-11] MEDS: CLOPIDOGREL BISULFATE 75 MG TABLET PO SCH (20:09)
[2018-04-11] MEDS: POTASSIUM CHLORIDE 20 MEQ TABLET.SA PO SCH (20:09)
[2018-04-11] MEDS: GABAPENTIN 600 MG TABLET PO SCH (20:09)
[2018-04-11] MEDS: FLUTICASONE/SALMETEROL 14 PUFF DISK.W.DEV IH SCH (20:09)
[2018-04-11] MEDS ORDERED: SIMVASTATIN 40 MG TABLET PO SCH (21:00)
[2018-04-11] MEDS ORDERED: ROSUVASTATIN CALCIUM 10 MG TABLET PO SCH (21:00)
[2018-04-11] MEDS: metFORMIN HCL 500 MG TABLET PO SCH (21:47)
[2018-04-11] MEDS: ALBUTEROL SULFATE/IPRATROPIUM 3 ML NEBU IH SCH (22:38)
[2018-04-12] MEDS: ALBUTEROL SULFATE/IPRATROPIUM 3 ML NEBU IH SCH ×4 (03:04→18:01)
--- NOTE | 2018-04-12 07:11 | PN ---
Subjective - Date and Time Seen Date: 04/12/18 Time: 07:06 Subjective Narrative: patient still cannot move RUE/RLE. Objective - Review of Systems Generalized/Overall Review: Reports: Weakness. Denies: Chills, Fever EENTM: Denies: Blurred Vision Respiratory: Reports: Cough, Shortness of Breath Cardiac: Denies: Chest Pain, Edema, Palpitations Abdominal: Denies: Nausea, Vomiting Genitourinary Symptoms: Denies: Urgency, Frequency Musculoskeletal Complaints: Reports: Joint Pain - Vitals Vitals: Last Vital Signs Temp 37.0 C 04/12/18 06:56 Pulse 112 H 04/12/18 06:56 Resp 24 H 04/12/18 06:56 BP 98/68 04/12/18 06:56 Pulse Ox 93 04/12/18 06:56 - Abnormal Lab Findings Abnormal Lab Findings: Abnormal Lab Results 04/11/18 04/11/18 04/11/18 Range/Units 13:25 13:25 14:10 WBC 11.6 H (4.0-10.5) K/mm3 RBC 4.61 L (4.7-6.0) M/mm3 Hgb 12.3 L (13.5-18.0) gm/dL Hct 38.8 L (42.0-52.0) % MCH 26.7 L (27-31) pg MCHC 31.7 L (32-36) g/dl RDW 15.7 H (11.5-14.0) % Immature Gran % (Auto) 0.90 H (0.001-0.429) % Immature Gran # (Auto) 0.10 H (0.000-0.0310) K/mm3 Neutrophils % 92.0 H (42-75.0) % Lymphocytes % 4.3 L (20-51) % Neutrophils # 10.7 H (1.3-6.0) K/mm3 Lymphocytes # 0.50 L (1.5-3.5) k/mm3 Chloride 96 L (97-106) mmol/L Est GFR (Non-Af Amer) 154 H D (60-130) mL/min BUN/Creatinine Ratio 28.1 H (9.0-21.6) Random Glucose 152 H (70-110) mg/dL AST 75 H (0-48) U/L Creatine Kinase 601 H (0-259) U/L Albumin 2.4 L (3.4-5.0) gm/dl Urine Protein 30 H (NEGATIVE) mg/dL Urine Blood 25 H (NEGATIVE) /ul Urine Bilirubin 1 H (NEGATIVE) mg/dl Urine Ictotest Positive H (NEGATIVE) Prot Sulfosalicylic Acd 2+ H (0) mg/dL - Exam Constitutional: Present: Alert, Oriented x3, Cooperative ENT Exam: Present: hearing grossly normal Neck: Present: supple Respiratory: Present: decreased breath sounds, crackles, rhonchi Cardiovascular/Chest: Present: regular rate, rhythm, no JVD Abdomen: Present: Normal bowel sounds, soft, nontender, nondistended Extremity: Present: no pedal edema, no calf tenderness Assessment/Plan - Problems/Diagnosis (1) Weakness Problem: Acute (2) CVA (cerebral vascular accident) Problem: Acute Qualifiers: CVA mechanism: thrombosis Precerebral and cerebral artery: middle cerebral artery Laterality of affected vessel: left Qualified Code(s): I63.312 - Cerebral infarction due to thrombosis of left middle cerebral artery Narrative: await MRI. on ASA and Plavix. for PT/OT/ST eval and treatment today. (3) COPD (chronic obstructive pulmonary disease) Problem: Chronic Qualifiers: COPD type: unspecified COPD Qualified Code(s): J44.9 - Chronic obstructive pulmonary disease, unspecified (4) Hyperlipidemia Problem: Chronic Qualifiers: Hyperlipidemia type: pure hypercholesterolemia Qualified Code(s): E78.00 - Pure hypercholesterolemia, unspecified; E78.0 - Pure hypercholesterolemia (5) HTN (hypertension) Problem: Chronic Qualifiers: Hypertension type: essential hypertension Qualified Code(s): I10 - Essential (primary) hypertension (6) DM (diabetes mellitus), type 2 Problem: Chronic Qualifiers:
[2018-04-12] MEDS ORDERED: LORazepam 2 MG/ML DISP.SYRIN IV SCH (07:30)
[2018-04-12] MEDS: INSULIN LISPRO 100 UNITS/ML VIAL SC SCH ×3 (07:35→17:02)
[2018-04-12] MEDS: FLUTICASONE/SALMETEROL 14 PUFF DISK.W.DEV IH SCH ×2 (07:36→19:44)
[2018-04-12] MEDS ORDERED: TAMSULOSIN HCL 0.4 MG CAP.SR.24H PO SCH (09:00)
[2018-04-12] MEDS ORDERED: ROSUVASTATIN CALCIUM 10 MG TABLET PO SCH (09:00)
[2018-04-12] MEDS ORDERED: NON-FORMULARY 1 DOSE DOSE (Omeprazole 20 MG) PO SCH (09:00)
[2018-04-12] MEDS: ENOXAPARIN SODIUM 40 MG/0.4 ML SYRG SC SCH (09:12)
[2018-04-12] MEDS: POTASSIUM CHLORIDE 20 MEQ TABLET.SA PO SCH ×2 (09:14→22:16)
[2018-04-12] MEDS: ASPIRIN 81 MG TABLET.DR PO SCH (09:14)
[2018-04-12] MEDS: FENOFIBRATE,MICRONIZED 134 MG CAPSULE PO SCH (09:15)
[2018-04-12] MEDS: predniSONE 10 MG TABLET PO SCH (09:16)
[2018-04-12] MEDS: CLOPIDOGREL BISULFATE 75 MG TABLET PO SCH (09:16)
[2018-04-12] MEDS: HYDROCHLOROTHIAZIDE 25 MG TABLET PO SCH (09:16)
[2018-04-12] MEDS: GABAPENTIN 600 MG TABLET PO SCH ×3 (09:16→17:01)
[2018-04-12] MEDS: POLYETHYLENE GLYCOL 3350 119 GM BTL PO SCH (09:17)
[2018-04-12] MEDS: LISINOPRIL 20 MG TABLET PO SCH (09:23)
[2018-04-12] MEDS: ATENOLOL 25 MG TABLET PO SCH (09:23)
[2018-04-12] MEDS: UMECLIDINIUM BROMIDE IH SCH (09:31)
[2018-04-12] MEDS: ALBUTEROL SULFATE 2.5 MG/0.5 ML VIAL.NEB IH PRN (11:11)
[2018-04-12] MEDS: metFORMIN HCL 500 MG TABLET PO SCH ×2 (12:03→17:00)
[2018-04-12] MEDS: TAMSULOSIN HCL 0.4 MG CAP.SR.24H PO SCH (19:43)
[2018-04-12] MEDS: ROSUVASTATIN CALCIUM 20 MG TABLET PO SCH (22:15)
[2018-04-13] MEDS: ALBUTEROL SULFATE/IPRATROPIUM 3 ML NEBU IH SCH ×4 (00:40→18:20)
[2018-04-13] MEDS: ENOXAPARIN SODIUM 40 MG/0.4 ML SYRG SC SCH (07:15)
[2018-04-13] MEDS: FLUTICASONE/SALMETEROL 14 PUFF DISK.W.DEV IH SCH ×2 (07:17→20:09)
[2018-04-13] MEDS: INSULIN LISPRO 100 UNITS/ML VIAL SC SCH ×3 (07:18→17:10)
[2018-04-13 07:45] LABS: Hematocrit 34.7 % (42.0-52.0); Hemoglobin 10.6 gm/dL (13.5-18.0); Mean Cell Volume 88.1 fl (78-100); Mean Corpuscular Hemoglobin 26.9 pg (27-31); Mean Corpuscular Hgb Conc 30.5 g/dl (32-36); Mean Platelet Volume 8.3 fl (8-11.3); Neutrophil # 9.2 K/mm3 (1.3-6.0); Neutrophil % 86.9 % (42-75.0); Platelet Count 190 K/mm3 (150-450); Red Blood Count 3.94 M/mm3 (4.7-6.0); Red Cell Distribution Width 15.8 % (11.5-14.0); White Blood Count 10.6 K/mm3 (4.0-10.5)
[2018-04-13 07:49] LABS: Anion Gap 5.6 mmol/L (6.8-13.8); BUN/Creatinine Ratio 13.9 (9.0-21.6); Calcium * 8.3 mg/dL (7.9-10.9); Carbon Dioxide 34.9 mmol/L (24-32.6); Estimated Creat Clear 85.3; Potassium 4.5 mmol/L (3.4-4.6)
[2018-04-13] MEDS: ASPIRIN 81 MG TABLET.DR PO SCH (09:30)
[2018-04-13] MEDS: metFORMIN HCL 500 MG TABLET PO SCH ×2 (09:30→17:45)
[2018-04-13] MEDS: predniSONE 10 MG TABLET PO SCH (09:30)
[2018-04-13] MEDS: FENOFIBRATE,MICRONIZED 134 MG CAPSULE PO SCH (09:30)
[2018-04-13] MEDS: CLOPIDOGREL BISULFATE 75 MG TABLET PO SCH (09:30)
[2018-04-13] MEDS: POTASSIUM CHLORIDE 20 MEQ TABLET.SA PO SCH ×2 (09:30→20:11)
[2018-04-13] MEDS: LISINOPRIL 20 MG TABLET PO SCH (09:31)
[2018-04-13] MEDS: ATENOLOL 25 MG TABLET PO SCH (09:31)
[2018-04-13] MEDS: GABAPENTIN 600 MG TABLET PO SCH ×3 (09:31→17:45)
[2018-04-13] MEDS: UMECLIDINIUM BROMIDE IH SCH (09:32)
[2018-04-13] MEDS: POLYETHYLENE GLYCOL 3350 119 GM BTL PO SCH (09:32)
--- NOTE | 2018-04-13 09:36 | PN ---
Subjective - Date and Time Seen Date: 04/13/18 Time: 09:30 Subjective Narrative: Patient not able to move RUE/RLE. Moves his LLE/LUE. Multiple infarcts- likely embolic. Objective - Review of Systems Generalized/Overall Review: Reports: Weakness. Denies: Chills, Fever EENTM: Denies: Blurred Vision Respiratory: Reports: Cough. Denies: Shortness of Breath Cardiac: Denies: Chest Pain, Edema, Palpitations Abdominal: Denies: Nausea, Vomiting Genitourinary Symptoms: Denies: Urgency, Frequency Musculoskeletal Complaints: Reports: Joint Pain - Vitals Vitals: Last Vital Signs Temp 37.6 C 04/13/18 06:00 Pulse 98 04/13/18 06:15 Resp 28 H 04/13/18 06:15 BP 127/71 04/13/18 06:00 Pulse Ox 93 04/13/18 06:05 - Abnormal Lab Findings Abnormal Lab Findings: Abnormal Lab Results 04/13/18 04/13/18 Range/Units 07:31 07:31 WBC 10.6 H (4.0-10.5) K/mm3 RBC 3.94 L (4.7-6.0) M/mm3 Hgb 10.6 L (13.5-18.0) gm/dL Hct 34.7 L (42.0-52.0) % MCH 26.9 L (27-31) pg MCHC 30.5 L (32-36) g/dl RDW 15.8 H (11.5-14.0) % Immature Gran % (Auto) 2.40 H (0.001-0.429) % Immature Gran # (Auto) 0.25 H (0.000-0.0310) K/mm3 Neutrophils % 86.9 H (42-75.0) % Lymphocytes % 5.8 L (20-51) % Neutrophils # 9.2 H (1.3-6.0) K/mm3 Lymphocytes # 0.62 L (1.5-3.5) k/mm3 Carbon Dioxide 34.9 H (24-32.6) mmol/L Anion Gap 5.6 L (6.8-13.8) mmol/L Random Glucose 206 H D (70-110) mg/dL - Exam Constitutional: Present: Alert, Oriented x3, Cooperative ENT Exam: Present: hearing grossly normal Neck: Present: supple Respiratory: Present: decreased breath sounds, crackles, No wheezing Cardiovascular/Chest: Present: regular rate, rhythm, no JVD, no murmur Abdomen: Present: Normal bowel sounds, soft, nontender, nondistended Extremity: Present: no pedal edema, no calf tenderness Neurologic: Present: oriented x 3, motor weakness - RUE/RLE. 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 will review Echo. addendum: Echo shows an echodensity on AMVL- cannot rule out thrombus or vegetation. Recommend RADHA. BC x 2 botles called today to be positive for Gram positive cocci mostly in paires. Will start Vancomycin. (3) COPD (chronic obstructive pulmonary disease) Problem: Chronic Qualifiers: COPD type: unspecified COPD Qualified Code(s): J44.9 - Chronic obstructive pulmonary disease, unspecified (4) Hyperlipidemia Problem: Chronic Qualifiers: Hyperlipidemia type: pure hypercholesterolemia Qualified Code(s): E78.00 - Pure hypercholesterolemia, unspecified; E78.0 - Pure hypercholesterolemia (5) HTN (hypertension) Problem: Chronic Qualifiers: Hypertension type: essential hypertension Qualified Code(s): I10 - Essential (primary) hypertension (6) DM (diabetes mellitus), type 2 Problem: Chronic Qualifiers:
[2018-04-13] MEDS: HYDROCHLOROTHIAZIDE 25 MG TABLET PO SCH (09:39)
[2018-04-13] MEDS: FINASTERIDE 5 MG TABLET PO SCH (10:04)
[2018-04-13] MEDS: VANCOMYCIN HCL 1 GM in DEXTROSE 5 % IN WATER 250 ML IV SCH ×4 (12:50→23:55)
[2018-04-13] MEDS: SACCHAROMYCES BOULARDII 250 MG CAPSULE PO SCH ×2 (12:56→20:10)
[2018-04-13] MEDS: TAMSULOSIN HCL 0.4 MG CAP.SR.24H PO SCH (20:10)
[2018-04-13] MEDS: ROSUVASTATIN CALCIUM 20 MG TABLET PO SCH (20:10)
[2018-04-13] MEDS: ALBUTEROL SULFATE 2.5 MG/0.5 ML VIAL.NEB IH PRN (20:58)
[2018-04-14] MEDS: ALBUTEROL SULFATE/IPRATROPIUM 3 ML NEBU IH SCH ×4 (00:38→18:05)
[2018-04-14 07:11] LABS: Hematocrit 33.4 % (42.0-52.0); Hemoglobin 10.2 gm/dL (13.5-18.0); Mean Corpuscular Hemoglobin 27.5 pg (27-31); Mean Corpuscular Hgb Conc 30.5 g/dl (32-36); Mean Platelet Volume 8.5 fl (8-11.3); Neutrophil # 8.8 K/mm3 (1.3-6.0); Platelet Count 192 K/mm3 (150-450); Red Blood Count 3.71 M/mm3 (4.7-6.0); Red Cell Distribution Width 15.9 % (11.5-14.0)
[2018-04-14 07:33] LABS: Anion Gap 2.2 mmol/L (6.8-13.8); BUN/Creatinine Ratio 13.3 (9.0-21.6); Calcium * 8.5 mg/dL (7.9-10.9); Carbon Dioxide 37.8 mmol/L (24-32.6); Chol/HDL Risk Ratio 2.5 mg/dL (3.3-5.0); Estimated Creat Clear 81.9
[2018-04-14 07:40] LABS: Hemoglobin A1C 6.5 % (4.00-6.0)
--- NOTE | 2018-04-14 09:33 | PN ---
Subjective - Date and Time Seen Date: 04/14/18 Time: 09:27 Subjective Narrative: Patient afebrile. Positive echodensity on MV, negative bubble study. BC x 2 - strep species in pairs possible enteroccocci. Objective - Review of Systems Generalized/Overall Review: Reports: Weakness. Denies: Chills, Fever EENTM: Denies: Blurred Vision Respiratory: Reports: Cough, Wheezing. Denies: Shortness of Breath Cardiac: Denies: Chest Pain, Edema, Palpitations Abdominal: Denies: Nausea, Vomiting Genitourinary Symptoms: Reports: Retention. Denies: Burning, Frequency Musculoskeletal Complaints: Reports: Joint Pain Neurological: Reports: Weakness - Vitals Vitals: Last Vital Signs Temp 36.8 C 04/14/18 06:25 Pulse 115 H 04/14/18 08:00 Resp 21 H 04/14/18 06:51 BP 120/73 04/14/18 06:25 Pulse Ox 91 L 04/14/18 07:20 - Abnormal Lab Findings Abnormal Lab Findings: Abnormal Lab Results 04/14/18 04/14/18 04/14/18 Range/Units 06:50 06:50 06:50 WBC 11.0 H (4.0-10.5) K/mm3 RBC 3.71 L (4.7-6.0) M/mm3 Hgb 10.2 L (13.5-18.0) gm/dL Hct 33.4 L (42.0-52.0) % MCHC 30.5 L (32-36) g/dl RDW 15.9 H (11.5-14.0) % Immature Gran % (Auto) 4.50 H (0.001-0.429) % Immature Gran # (Auto) 0.49 H (0.000-0.0310) K/mm3 Neutrophils % 80.0 H (42-75.0) % Lymphocytes % 9.1 L (20-51) % Neutrophils # 8.8 H (1.3-6.0) K/mm3 Lymphocytes # 1.00 L (1.5-3.5) k/mm3 Sodium 130 L (132-142) mmol/L Potassium 5.0 H (3.4-4.6) mmol/L Chloride 95 L (97-106) mmol/L Carbon Dioxide 37.8 H (24-32.6) mmol/L Anion Gap 2.2 L (6.8-13.8) mmol/L Random Glucose 210 H (70-110) mg/dL Hemoglobin A1c 6.5 H (4.00-6.0) % LDL Cholesterol 45 L (70-130) mg/dL Cholesterol/HDL Ratio 2.5 L (3.3-5.0) mg/dL - Exam Constitutional: Present: Alert, Oriented x3, Cooperative ENT Exam: Present: hearing grossly normal Neck: Present: supple Respiratory: Present: decreased breath sounds, crackles, wheezing Cardiovascular/Chest: Present: regular rate, rhythm, no JVD, no murmur Abdomen: Present: Normal bowel sounds, soft, nontender, nondistended Extremity: Present: no pedal edema, other Skin Exam: Present: other - no janeway or Osler Cauti Physician Documentation - Urinary Catheter Management Urethral (Herrera) Date of Insertion: 04/13/18 Time of Insertion: 23:28 Assessment/Plan - Problems/Diagnosis (1) Bacteremia Problem: Acute Narrative: Streptococcus species in pairs- likely enterococcus. r/o endocarditis- positive echodensity on MV, recomend RADHA. started Vanco yesterday. 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 recommend RADHA (4) COPD (chronic obstructive pulmonary disease) Problem: Chronic Qualifiers: COPD type: unspecified COPD Qualified Code(s): J44.9 - Chronic obstructive pulmonary disease, unspecified (5) Hyperlipidemia Problem: Chronic Qualifiers: Hyperlipidemia type: pure hypercholesterolemia Qualified Code(s): E78.00 - Pure hypercholesterolemia, unspecified; E78.0 - Pure hypercholesterolemia (6) HTN (hypertension) Problem: Chronic Qualifiers: Hypertension type: essential hypertension Qualified Code(s): I10 - Essential (primary) hypertension (7) DM (diabetes mellitus), type 2 Problem: Chronic Qualifiers:
[2018-04-14] MEDS: INSULIN LISPRO 100 UNITS/ML VIAL SC SCH ×3 (10:35→17:21)
[2018-04-14] MEDS: ENOXAPARIN SODIUM 40 MG/0.4 ML SYRG SC SCH (10:40)
[2018-04-14] MEDS: ASPIRIN 81 MG TABLET.DR PO SCH (10:44)
[2018-04-14] MEDS: FENOFIBRATE,MICRONIZED 134 MG CAPSULE PO SCH (10:44)
[2018-04-14] MEDS: SACCHAROMYCES BOULARDII 250 MG CAPSULE PO SCH ×2 (10:45→20:32)
[2018-04-14] MEDS: GABAPENTIN 600 MG TABLET PO SCH ×3 (10:45→16:52)
[2018-04-14] MEDS: metFORMIN HCL 500 MG TABLET PO SCH ×2 (10:45→16:52)
[2018-04-14] MEDS: POTASSIUM CHLORIDE 20 MEQ TABLET.SA PO SCH ×2 (10:45→20:33)
[2018-04-14] MEDS: POLYETHYLENE GLYCOL 3350 119 GM BTL PO SCH (10:46)
[2018-04-14] MEDS: CLOPIDOGREL BISULFATE 75 MG TABLET PO SCH (10:46)
[2018-04-14] MEDS: UMECLIDINIUM BROMIDE IH SCH (10:46)
[2018-04-14] MEDS: FINASTERIDE 5 MG TABLET PO SCH (10:46)
[2018-04-14] MEDS: predniSONE 10 MG TABLET PO SCH (10:46)
[2018-04-14] MEDS: HYDROCHLOROTHIAZIDE 25 MG TABLET PO SCH (10:46)
[2018-04-14] MEDS: LISINOPRIL 20 MG TABLET PO SCH (10:47)
[2018-04-14] MEDS: ATENOLOL 25 MG TABLET PO SCH (10:47)
[2018-04-14] MEDS: FLUTICASONE/SALMETEROL 14 PUFF DISK.W.DEV IH SCH ×2 (10:54→20:32)
[2018-04-14] MEDS: VANCOMYCIN HCL 1 GM in DEXTROSE 5 % IN WATER 250 ML IV SCH ×2 (12:19)
[2018-04-14] MEDS: ROSUVASTATIN CALCIUM 20 MG TABLET PO SCH (20:32)
[2018-04-14] MEDS: TAMSULOSIN HCL 0.4 MG CAP.SR.24H PO SCH (20:32)
[2018-04-15] MEDS: ALBUTEROL SULFATE/IPRATROPIUM 3 ML NEBU IH SCH ×6 (00:07→18:10)
[2018-04-15] MEDS: VANCOMYCIN HCL 1 GM in DEXTROSE 5 % IN WATER 250 ML IV SCH ×2 (00:19)
[2018-04-15] MEDS: FLUTICASONE/SALMETEROL 14 PUFF DISK.W.DEV IH SCH ×2 (07:10→19:46)
[2018-04-15] MEDS: INSULIN LISPRO 100 UNITS/ML VIAL SC SCH ×3 (07:10→17:24)
[2018-04-15] MEDS: ENOXAPARIN SODIUM 40 MG/0.4 ML SYRG SC SCH (07:10)
[2018-04-15] MEDS: GABAPENTIN 600 MG TABLET PO SCH ×3 (09:13→17:25)
[2018-04-15] MEDS: predniSONE 10 MG TABLET PO SCH (09:13)
[2018-04-15] MEDS: metFORMIN HCL 500 MG TABLET PO SCH ×2 (09:13→17:25)
[2018-04-15] MEDS: CLOPIDOGREL BISULFATE 75 MG TABLET PO SCH (09:13)
[2018-04-15] MEDS: LISINOPRIL 20 MG TABLET PO SCH (09:13)
[2018-04-15] MEDS: POTASSIUM CHLORIDE 20 MEQ TABLET.SA PO SCH ×2 (09:13→21:30)
[2018-04-15] MEDS: FENOFIBRATE,MICRONIZED 134 MG CAPSULE PO SCH (09:13)
[2018-04-15] MEDS: UMECLIDINIUM BROMIDE IH SCH (09:13)
[2018-04-15] MEDS: ASPIRIN 81 MG TABLET.DR PO SCH (09:13)
[2018-04-15] MEDS: SACCHAROMYCES BOULARDII 250 MG CAPSULE PO SCH ×2 (09:13→21:29)
[2018-04-15] MEDS: HYDROCHLOROTHIAZIDE 25 MG TABLET PO SCH (09:13)
[2018-04-15] MEDS: ATENOLOL 25 MG TABLET PO SCH (09:14)
[2018-04-15] MEDS: FINASTERIDE 5 MG TABLET PO SCH (09:14)
[2018-04-15] MEDS: POLYETHYLENE GLYCOL 3350 119 GM BTL PO SCH (09:19)
--- NOTE | 2018-04-15 09:28 | PN ---
Subjective - Date and Time Seen Date: 04/15/18 Time: 09:23 Subjective Narrative: Patient frowing E. Fecalis on BC x 2 bottles. Objective - Review of Systems Generalized/Overall Review: Reports: Weakness. Denies: Chills, Fever EENTM: Denies: Blurred Vision Respiratory: Denies: Cough, Shortness of Breath Cardiac: Denies: Chest Pain, Edema, Palpitations Abdominal: Denies: Nausea, Vomiting Genitourinary Symptoms: Denies: Urgency, Frequency Musculoskeletal Complaints: Reports: Joint Pain - Vitals Vitals: Last Vital Signs Temp 36.6 C 04/15/18 06:45 Pulse 110 H 04/15/18 09:14 Resp 22 H 04/15/18 06:45 BP 114/66 04/15/18 09:14 Pulse Ox 97 04/15/18 08:55 - Exam Constitutional: Present: Alert, Oriented x3, Cooperative ENT Exam: Present: hearing grossly normal Neck: Present: supple Respiratory: Present: decreased breath sounds, rhonchi, No rales, No wheezing Cardiovascular/Chest: Present: regular rate, rhythm, no JVD, no murmur Abdomen: Present: Normal bowel sounds, soft, nontender, nondistended Extremity: Present: no pedal edema, no calf tenderness Neurologic: Present: oriented x 3, facial droop, motor weakness Cauti Physician Documentation - Urinary Catheter Management Urethral (Herrera) Date of Insertion: 04/13/18 Time of Insertion: 23:28 Assessment/Plan - Problems/Diagnosis (1) Bacteremia Problem: Acute Narrative: Enterococcus fecalis. will change vanco to Unasyn and Rocephin until endocarditis is ruled out. will refer to cardiology for possible RADHA. (2) Weakness Problem: Acute Narrative: continue with PT/OT/ST. 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 continue with IV antibiotics in case septic emboli. (4) COPD (chronic obstructive pulmonary disease) Problem: Chronic Qualifiers: COPD type: unspecified COPD Qualified Code(s): J44.9 - Chronic obstructive pulmonary disease, unspecified (5) Hyperlipidemia Problem: Chronic Qualifiers: Hyperlipidemia type: pure hypercholesterolemia Qualified Code(s): E78.00 - Pure hypercholesterolemia, unspecified; E78.0 - Pure hypercholesterolemia (6) HTN (hypertension) Problem: Chronic Qualifiers: Hypertension type: essential hypertension Qualified Code(s): I10 - Essential (primary) hypertension (7) DM (diabetes mellitus), type 2 Problem: Chronic Qualifiers:
[2018-04-15] MEDS ORDERED: ALBUTEROL SULFATE 2.5 MG/0.5 ML VIAL.NEB IH PRN (10:00)
[2018-04-15] MEDS: AMPICILLIN SODIUM/SULBACTAM NA 3 GM in NORMAL SALINE 100 ML IV SCH ×3 (10:35→21:29)
[2018-04-15] MEDS ORDERED: VANCOMYCIN HCL LEVEL XX ONE (11:30)
--- NOTE | 2018-04-15 12:44 | ECHO ---
This report is available in the EMR
[2018-04-15] MEDS: TAMSULOSIN HCL 0.4 MG CAP.SR.24H PO SCH (19:46)
[2018-04-15] MEDS: ROSUVASTATIN CALCIUM 20 MG TABLET PO SCH (21:30)
[2018-04-16] MEDS: ALBUTEROL SULFATE/IPRATROPIUM 3 ML NEBU IH SCH ×5 (00:05→21:29)
[2018-04-16] MEDS: AMPICILLIN SODIUM/SULBACTAM NA 3 GM in NORMAL SALINE 100 ML IV SCH ×3 (03:32→15:27)
[2018-04-16 05:37] LABS: Hematocrit 34.2 % (42.0-52.0); Hemoglobin 10.3 gm/dL (13.5-18.0); Mean Cell Volume 88.6 fl (78-100); Mean Corpuscular Hemoglobin 26.7 pg (27-31); Mean Corpuscular Hgb Conc 30.1 g/dl (32-36); Mean Platelet Volume 8.6 fl (8-11.3); Neutrophil # 6.8 K/mm3 (1.3-6.0); Neutrophil % 76.4 % (42-75.0); Platelet Count 233 K/mm3 (150-450); Red Blood Count 3.86 M/mm3 (4.7-6.0); White Blood Count 8.9 K/mm3 (4.0-10.5)
[2018-04-16 05:44] LABS: Anion Gap 4.8 mmol/L (6.8-13.8); BUN/Creatinine Ratio 23.2 (9.0-21.6); CRP 3.9 mg/dL (0.0-0.9); Calcium * 8.5 mg/dL (7.9-10.9); Carbon Dioxide 42.2 mmol/L (24-32.6)
[2018-04-16] MEDS: FLUTICASONE/SALMETEROL 14 PUFF DISK.W.DEV IH SCH ×2 (06:40→19:41)
[2018-04-16] MEDS: INSULIN LISPRO 100 UNITS/ML VIAL SC SCH ×3 (06:40→18:24)
[2018-04-16] MEDS: ENOXAPARIN SODIUM 40 MG/0.4 ML SYRG SC SCH (06:40)
[2018-04-16] MEDS: FENOFIBRATE,MICRONIZED 134 MG CAPSULE PO SCH (08:26)
[2018-04-16] MEDS: SACCHAROMYCES BOULARDII 250 MG CAPSULE PO SCH ×2 (08:26→21:42)
[2018-04-16] MEDS: predniSONE 10 MG TABLET PO SCH (08:26)
[2018-04-16] MEDS: HYDROCHLOROTHIAZIDE 25 MG TABLET PO SCH (08:26)
[2018-04-16] MEDS: CLOPIDOGREL BISULFATE 75 MG TABLET PO SCH (08:26)
[2018-04-16] MEDS: ASPIRIN 81 MG TABLET.DR PO SCH (08:28)
[2018-04-16] MEDS: POTASSIUM CHLORIDE 20 MEQ TABLET.SA PO SCH ×2 (08:28→21:41)
[2018-04-16] MEDS: ATENOLOL 25 MG TABLET PO SCH (08:29)
[2018-04-16] MEDS: LISINOPRIL 20 MG TABLET PO SCH (08:30)
[2018-04-16] MEDS: GABAPENTIN 600 MG TABLET PO SCH ×3 (08:30→18:25)
[2018-04-16] MEDS: UMECLIDINIUM BROMIDE IH SCH (08:30)
[2018-04-16] MEDS: FINASTERIDE 5 MG TABLET PO SCH (08:30)
[2018-04-16] MEDS: metFORMIN HCL 500 MG TABLET PO SCH ×2 (08:30→18:25)
[2018-04-16] MEDS: POLYETHYLENE GLYCOL 3350 119 GM BTL PO SCH (08:31)
--- NOTE | 2018-04-16 08:42 | PN ---
Subjective - Date and Time Seen Date: 04/16/18 Time: 08:37 Subjective Narrative: Patient afebrile. WBC back to normal. Objective - Review of Systems Generalized/Overall Review: Reports: Weakness. Denies: Chills, Fever Respiratory: Reports: Cough, Shortness of Breath Cardiac: Denies: Chest Pain, Edema, Palpitations Abdominal: Denies: Nausea, Vomiting Genitourinary Symptoms: Denies: Urgency, Frequency Musculoskeletal Complaints: Reports: Joint Pain - Vitals Vitals: Last Vital Signs Temp 36.4 C 04/16/18 06:35 Pulse 92 04/16/18 08:30 Resp 32 H 04/16/18 06:35 BP 115/66 04/16/18 08:30 Pulse Ox 92 L 04/16/18 06:35 - Abnormal Lab Findings Abnormal Lab Findings: Abnormal Lab Results 04/16/18 04/16/18 04/16/18 Range/Units 05:32 05:32 05:32 RBC 3.86 L (4.7-6.0) M/mm3 Hgb 10.3 L (13.5-18.0) gm/dL Hct 34.2 L (42.0-52.0) % MCH 26.7 L (27-31) pg MCHC 30.1 L (32-36) g/dl RDW 16.0 H (11.5-14.0) % Immature Gran % (Auto) 5.00 H (0.001-0.429) % Immature Gran # (Auto) 0.45 H (0.000-0.0310) K/mm3 Neutrophils % 76.4 H (42-75.0) % Lymphocytes % 10.5 L (20-51) % Neutrophils # 6.8 H (1.3-6.0) K/mm3 Lymphocytes # 0.94 L (1.5-3.5) k/mm3 ESR 59 H (0-10) mm/hr Potassium 5.0 H (3.4-4.6) mmol/L Chloride 94 L (97-106) mmol/L Carbon Dioxide 42.2 H (24-32.6) mmol/L Anion Gap 4.8 L (6.8-13.8) mmol/L BUN/Creatinine Ratio 23.2 H (9.0-21.6) Random Glucose 165 H (70-110) mg/dL C-Reactive Prot, Quant 3.9 H (0.0-0.9) mg/dL - Exam Constitutional: Present: Alert, Oriented x3, Cooperative ENT Exam: Present: hearing grossly normal Neck: Present: supple Respiratory: Present: decreased breath sounds, No rales, No wheezing Cardiovascular/Chest: Present: regular rate, rhythm, no JVD, no murmur Abdomen: Present: Normal bowel sounds, soft, nontender, tender Extremity: Present: no pedal edema, no calf tenderness Cauti Physician Documentation - Urinary Catheter Management Urethral (Herrera) Date of Insertion: 04/13/18 Time of Insertion: 23:28 Assessment/Plan - Problems/Diagnosis (1) Endocarditis, bacterial, acute/subacute Problem: Acute Narrative: multifocal embolic stroke/MV echodensity likely vegetation/ Enterococcus fecalis bacteremia on 2 bottles. discussed with Cardiology- RADHA will not really help as definitiely it will be abnormal,. treat as endocarditis. recommend TTE in 2 weeks. If patient is not getting better and MV is getting worst , will need surgical consult. may need RADHA after treatment as follow up to assess MV. (2) Bacteremia Problem: Acute Narrative: Enterococcus Fecalis- endocarditis- on Unasyn and Rosephin (3) CVA (cerebral vascular accident) Problem: Acute Qualifiers: CVA mechanism: embolism Laterality of affected vessel: unspecified Narrative: multifocal likely embolic- r/o septic emboli (4) Weakness Problem: Acute (5) COPD (chronic obstructive pulmonary disease) Problem: Chronic Qualifiers: COPD type: unspecified COPD Qualified Code(s): J44.9 - Chronic obstructive pulmonary disease, unspecified (6) Hyperlipidemia Problem: Chronic Qualifiers: Hyperlipidemia type: pure hypercholesterolemia Qualified Code(s): E78.00 - Pure hypercholesterolemia, unspecified; E78.0 - Pure hypercholesterolemia (7) HTN (hypertension) Problem: Chronic Qualifiers: Hypertension type: essential hypertension Qualified Code(s): I10 - Essential (primary) hypertension (8) DM (diabetes mellitus), type 2 Problem: Chronic Qualifiers:
[2018-04-16] MEDS ORDERED: LIDOCAINE HCL 50 ML VIAL ONE (17:23)
[2018-04-16] MEDS: TAMSULOSIN HCL 0.4 MG CAP.SR.24H PO SCH (19:41)
--- NOTE | 2018-04-16 19:47 | ANES ---
Anesthesia Procedure Note Procedure Note: ANESTHESIA PROCEDURE NOTE Date of procedure: 04/16/2018. Time of procedure:[]. 1730 Performed by: Jaspreet Campbell CRNA Masking Machine Feeder: [] None . Preprocedure diagnosis: []. Myocarditis. Need for long-term antibiotics. Difficult IV access. Post procedure diagnosis: Same. Procedure:[] PICC line placement Indications: []. Difficult IV access Findings: [] Patient placed in the supine position. Patient's left antecubital fossa and surrounding tissue prepped and draped sterilely. Attempted venipuncture with ultrasound guidance successful. Patient's right antecubital fossa and surrounding tissue was prepped and draped sterilely. Double lumen PICC line was inserted using aseptic technique. Both lumens flush and aspirate easily. Distance from skin to tip of catheter is 48 cm. Catheter taped into place. Chest x-ray revealed tip of catheter located in the right atrium proximately 2.5 cm. Catheter retracted approximately 4 or 5 cm. Catheter was re-taped into place. EBL: Minimal. Fluids: N/A. Specimen: N/A. Post procedure condition: The patient tolerated the procedure well. No complications were noted. Thank you for this consultation Jaspreet Campbell CRNA
[2018-04-16] MEDS ORDERED: ONDANSETRON HCL/PF 2 MG/ML VIAL IV PRN (20:39)
[2018-04-16] MEDS: ROSUVASTATIN CALCIUM 20 MG TABLET PO SCH (21:42)
[2018-04-16] MEDS ORDERED: EPINEPHrine 0.1 MG/ML DISP.SYRIN ONE (23:00)
[2018-04-16] MEDS ORDERED: CALCIUM GLUCONATE 4.65 MEQ/10 ML VIAL IV ONE (23:00)
[2018-04-16 23:15] LABS: Hematocrit 41.6 % (42.0-52.0); Hemoglobin 11.9 gm/dL (13.5-18.0); Mean Cell Volume 93.5 fl (78-100); Mean Corpuscular Hemoglobin 26.7 pg (27-31); Mean Corpuscular Hgb Conc 28.6 g/dl (32-36); Mean Platelet Volume 8.9 fl (8-11.3); Platelet Count 277 K/mm3 (150-450); Red Blood Count 4.45 M/mm3 (4.7-6.0); Red Cell Distribution Width 16.1 % (11.5-14.0); White Blood Count 15.5 K/mm3 (4.0-10.5)
[2018-04-16 23:16] LABS: Total Cells Counted 100
[2018-04-16 23:20] LABS: Anion Gap 10.6 mmol/L (6.8-13.8); Bilirubin, Total 0.1 mg/dL (0.0-1.1); Ca. Corrected For Albumin 10.6 mg/dL (8.4-10.2); Calcium * 9.3 mg/dL (7.9-10.9); Carbon Dioxide 35.5 mmol/L (24-32.6); Potassium 6.1 mmol/L (3.4-4.6); Total Protein 6.7 gm/dL (6.2-8.2); Troponin I 0.061 ng/mL (0.00-0.10)
[2018-04-16 23:22] LABS: Atypical (Reactive) Lymph 3 % (0-2); Band 2 % (0-2.0); Basophil 1 % (0-1); Immature Granulocyte 7 (0-1); Lymphocyte 22 % (20-51); Monocyte 7 % (0-9); Neutrophil 58 % (42-75)
--- NOTE | 2018-04-17 00:58 | ERNOTE ---
Cardiopulmonary Resuscitation Presenting Symptoms: other - Pt became bradycardic, noticed on telemetry. Pt was found pulseless, CPR started Time Seen by Provider: 04/11/18 12:40 Source: RN/ Exam Limitations: clinical condition Immunizations: IMMUNIZATION HX Immunizations Up to Date Yes History of Influenza Vaccine No Hx Pneumococcal Vaccination No Allergies/Adverse Reactions: Allergies No Known Allergies Allergy (Verified 04/11/18 17:54) Home Medications: HOME MEDICATIONS Atenolol [Tenormin] 25 mg PO DAILY 03/05/14 [Last Taken Unknown] Clopidogrel Bisulfate [Plavix] 75 mg PO DAILY 03/05/14 [Last Taken Unknown] Gabapentin [Neurontin] 600 mg PO TID 03/05/14 [Last Taken Unknown] Hydrochlorothiazide [Hydrodiuril] 25 mg PO DAILY 03/05/14 [Last Taken Unknown] Lisinopril [Zestril] 20 mg PO DAILY 03/05/14 [Last Taken Unknown] Omeprazole [Prilosec] 20 mg PO DAILY 03/05/14 [Last Taken Unknown] Simvastatin [Zocor] 40 mg PO HS 03/05/14 [Last Taken Unknown] Tamsulosin HCl [Flomax] 0.4 mg PO DAILY 03/31/17 [Last Taken Unknown] Potassium Chloride [Klor-Con M20] 20 meq PO BID #60 tab.er.prt 11/29/17 [Last Taken Unknown] Atorvastatin Calcium 20 mg PO DAILY #30 tab 12/07/17 [Last Taken Unknown] Polyethylene Glycol 3350 [Miralax] 17 gm PO DAILY #30 btl 12/07/17 [Last Taken Unknown] ipratropium-albuterol 0.5 mg-3 mg(2.5 mg base)/3 mL nebulization soln 3 ml IH BID #540 ml 03/26/18 [Last Taken Unknown] Albuterol Sulfate [Proair Hfa] 1 - 2 puff IH Q2H PRN 04/11/18 [Last Taken Unknown] Ampicillin Trihydrate 500 mg PO QID 04/11/18 [Last Taken Unknown] Fenofibrate Nanocrystallized [Fenofibrate] 145 mg PO DAILY 04/11/18 [Last Taken Unknown] Fluticasone/Salmeterol [Advair 250-50 Diskus] 1 puff IH BID 04/11/18 [Last Taken Unknown] Levofloxacin [Levaquin] 500 mg PO DAILY 04/11/18 [Last Taken Unknown] Nystatin 5 ml PO QID 04/11/18 [Last Taken Unknown] Umeclidinium Belden [Incruse Ellipta] 1 puff IH DAILY 04/11/18 [Last Taken Unknown] metFORMIN HCL [Metformin HCl] 500 mg PO BID 04/11/18 [Last Taken Unknown] predniSONE [Prednisone] 10 mg PO DAILY 04/11/18 [Last Taken Unknown] Narrative: Pt has been in the hospital for some time due to a CVA. Today he had some vomiting and was given zofran. Upon my arrival in the room he had vomitus around his mouth and had minimal respiratory effort, CPR was in progress. Code Timing: Present: return of spontaneous circulation - x 2 Review of Systems - Review of Systems Constitutional: Present: recent illness Gastrointestinal/Abdominal: Present: nausea, vomiting Neurological: Present: weakness, numbness Medical History (Last Reviewed 04/17/18 @ 00:34 by Harley Naqvi DO) Abnormal angiogram COPD (chronic obstructive pulmonary disease) Diabetes mellitus, type II HLD (hyperlipidemia) HTN (hypertension) Osteoarthritis Surgical History: Surgical History (Last Reviewed 04/17/18 @ 00:34 by Harley Naqvi DO) History of cataract surgery (Acute) H/O colonoscopy (Acute) Hx of angiography (Acute) Family History: Family History (Last Reviewed 04/17/18 @ 00:34 by Harley Naqvi DO) Father Stomach cancer Mother COPD (chronic obstructive pulmonary disease) Social History: Patient Lives/Resources Home Utilized Preferred Language Afghan Do you have any mormon or Yes: holiness cultural preference? Smoking Status Current every day smoker Have you smoked in the past 12 Yes months Do you dip or chew tobacco No Abuse History No History of abuse Psych History No pertinent hx Alcohol Use heavy Drug Use none (Last Updated 12/27/17 @ 18:05 by Yarelis Marley MD) No Social History Section defined Physical Exam - Physical Exam General Appearance: Present: other - non responsive Head Exam: Present: no evidence of injury Eye Exam: Abnormal pupil: bilateral - non reactive Ears, Nose, Throat: Present: other - vomitus around and in his mouth, suctioned early in the response Neck: Present: supple Respiratory: Present: decreased breath sounds, rhonchi - RLL. Cardiovascular/Chest: Present: other - no cardiac activity initially Neurological Exam: Present: other - non-responsive Skin Exam: Present: cyanosis, pallor Progress - Results and Orders Patient's Lab Results:: I have reviewed the patient's lab results. Results and Orders: Laboratory Tests 04/16/18 04/16/18 23:00 23:00 WBC 15.5 H D Hgb 11.9 L Hct 41.6 L Plt Count 277 Sodium 135 Potassium 6.1 H D Chloride 95 L BUN 22 Creatinine 1.00 Random Glucose 240 H D Calcium Adj for Albumin 10.6 H AST 250 H ALT 163 H Troponin I 0.061 Total Protein 6.7 Albumin 2.0 L - X-Ray X-Ray #1 X-Ray: chest Interpretation: Interp. by me X-ray Comments: ET tube in trachea above the dulce maria. - Progress/Reassessment Chief Complaint: Fall Progress Note-Subjective: 04/16/18 23:55 See code blue sheet for details of rhythm and treatments Pt initially bradycardic after a couple rounds of CPR and came up to 50-60 then went into PEA. Epi was given every 3-5 minutes and CPR resumed. I made 2 attempts at intubation with manual laryngoscope without success. I then used the glidescope and was able to place a 7.0 ET tube in the first try. Pt had ROSC x 2 but then returned into PEA. Potassium was found to be elevated and 500 mg of calcium gluconate was given. I spoke with Dr. Marley and we decided the patient would not survive this incident and if he were to become pulseless again that no further attempts would be initiated. I left the room while pt still had a pulse and it was reported to me that he again went into PEA soon after I left. Procedures Intubation Method: orotracheal Tube Size (cm): 7.0 Medications: Other - none Breath Sounds after Intubation: equal Intubation Complications: oral-unsuccessful attempt - x2 Post Intubation Xray: Yes Departure Clinical Impression: Weakness, Stroke-like symptom, Cardiac arrest with pulseless electrical activity Aspiration into lower respiratory tract Qualifiers: Encounter type: initial encounter Qualified Code(s): T17.800A - Unspecified foreign body in other parts of respiratory tract causing asphyxiation, initial encounter - Departure Disposition: Condition: Critical Care Time - Critical Care Critical Time Spent:: Yes Total time (mins) Spent:: 50 Critical Care: code blue, CPR, intubation
[2018-04-17 02:56] VITALS: BP 0/0
--- NOTE | 2018-04-17 15:48 | DS ---
Discharge Summary - Provider Primary Care Provider: Yarelis Marley Admitting Clinician: Yarelis Marley Attending Physician on Admission: Yarelis Marley Pronouncing Clinician: Harley Naqvi - Date and Time Date of : 04/16/18 Time of : 23:04 - Diagnosis/Cause of (1) Asphyxiation Problems: Acute (2) Aspiration into lower respiratory tract Problems: Acute (3) Endocarditis, bacterial, acute/subacute Problems: Acute (4) Bacteremia Problems: Acute (5) CVA (cerebral vascular accident) Problems: Acute (6) Weakness Problems: Acute (7) COPD (chronic obstructive pulmonary disease) Problems: Chronic (8) Hyperlipidemia Problems: Chronic (9) HTN (hypertension) Problems: Chronic (10) DM (diabetes mellitus), type 2 Problems: Chronic - Summary Details (narrative): Kvng Ovalle, is a 62-year-old white male, with past medical history of COPD, diabetes mellitus type 2, hypertension, hyperlipidemia, who was admitted on 04/11/2018 for weakness. One week prior to admission the patient said he started getting generalized weakness. 4 days prior to admission he started noticing weakness of his right side of his body and he kept falling down. Today the patient said he was on the floor and unable to get up since one day prior to admission as he cannot move his RUE and RLE. He called the EMS and he was brought to our emergency room where blood work were not so significant significant except for elevated white blood cell count. His head CT scan showed no acute intracranial process. He said that 4-5 days ago he ran out of all of his medications. He denied any chest pains, shortness of breath, fever or chills. He was admitted and ASA was added to his Plavix. His home medications were continued. His WBC went down and was attributed to reaction to his CVA. BC were sent and came back positive for gram positive cocci in pairs. His MRI showed multifocal acute/subacute CVA likely embolic. Echo showed negative bubble study but showed a an echodensity on the AMVL , cannot rule out vegetation, consider RADHA. IV Vancomycin as monotherapy for possible I.E. ( endocarditis ) was inititiated . BC report showed later enterococcus fecalis x 2 bottles and vanco was discontinued. He was started on high dose ampicillin and Rocpehin . I showed the Echo to Dr. Kike, and she says that RADHA will not really helps us as it will definitely be abnormal and she recommended to continue to treat him as endocarditis. 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 PT/ST/OT were consulted for him on admission and he was awaiting in patient cardiac rehab in [facility] once he got a NH to accept him when he gets discharged from there. He has been on regular diet per ST recommendation with additional maneuvers. On the day of his demise, he choked on his food . IV zofran was started PRN. He requested for food again , and choked again. The nurse stopped his food intake. Later on he was found unresponsive and laura ledezma was called. He was intubated and resuscitative measures were taken. He would get bradycardic and then PEA. After valiant effort at trying to revive the patient, CPR was discontinued. He on 04/16/2018 at 2304. Cause of likely was asphyxiation with aspiration causing acute respiratory failure leading to cardiac arrest. Procedures Performed: see notes below Procedure Performed: PIC line insertion, intubation - Additional Data Confirmation of as documented by pronouncing clinician: no pulse, no respirations, no heart sounds, pupils fixed and dilated Family: not available Practitioner(Attending/PCP) notified: Yes Was code activated: Yes Autopsy requested: No Harness Installer notified: No Organ Bank notified: Yes Advance Directives: Yes Hospice patient: No
== END 2018-04-16 23:04 | disposition expired | DRG 64 ==
LOC: ER 12:28 → MS 12:28
PROVIDERS: ADMIT Internal Medicine; ATTEND Internal Medicine
DX: M19.90 Unspecified osteoarthritis, unspecified site; Z79.84 Long term (current) use of oral hypoglycemic drugs; R53.1 Weakness; Z79.52 Long term (current) use of systemic steroids; B95.2 Enterococcus as the cause of diseases classified elsewhere; J44.9 Chronic obstructive pulmonary disease, unspecified; Y92.9 Unspecified place or not applicable; R29.810 Facial weakness; I33.0 Acute and subacute infective endocarditis; Y93.9 Activity, unspecified; R00.1 Bradycardia, unspecified; I63.312 Cerebral infarction due to thrombosis of left middle cerebral artery; E11.9 Type 2 diabetes mellitus without complications; Z83.6 Family history of other diseases of the respiratory system; T17.920A Food in respiratory tract, part unspecified causing asphyxiation, initial encounter; Z79.51 Long term (current) use of inhaled steroids; F17.200 Nicotine dependence, unspecified, uncomplicated; G81.91 Hemiplegia, unspecified affecting right dominant side; W19.XXXA Unspecified fall, initial encounter; Z79.02 Long term (current) use of antithrombotics/antiplatelets; J96.00 Acute respiratory failure, unspecified whether with hypoxia or hypercapnia; Z91.14 Patient's other noncompliance with medication regimen; R78.81 Bacteremia; I10 Essential (primary) hypertension; E78.00 Pure hypercholesterolemia, unspecified
CPT/HCPCS: 36415; 70450; 70551; 71010; 71020; 71045; 71046; 72110; 80048; 80053; 80061; 80307; 80320; 81001; 82140; 82550; 83036; 83605; 84145; 84484; 85007; 85025; 85652; 86140; 87040; 87077; 87186; 92507; 92610; 92950; 93005; 93308; 93880; 94640; 94664; 96360; 97110; 97163; 97166; 97530; 97535; 99285; G0479; G0481; J2405